=== PATIENT | male | born 1930 | race Caucasian/White ===

== ENCOUNTER 2018-08-24 08:19 | Inpatient (IN) | payer MEDICARE, BC ==
[2018-08-24] VITALS (21 sets, daily range): BP systolic 88–152; BP diastolic 46–100
[~2018-08-24] VITALS: Ht 167.6 cm; Wt 86.2 kg
[~2018-08-24 08:19] MED LIST: ASPI81TA52 PO; CARV-50 PO; CHOL100046 PO; DOCUMENT DATE & TIME OF BETA-BLOCKER PO ONE; DOXA4TAB3 PO; FINA5TAB11 PO; FURO20TA4 PO; LOSA50TA21 PO; LOVA20TA2 PO; MAGN400C PO; MULT1TAB74 PO; POTA10CA44 PO; RIVA20TA PO; VANCOMYCIN INJ 1000 MG in NORMAL SALINE 250ml IV.SOLN IV ONE; famotidine 20mg tablet PO ONE; ringers solution, lacted 1,000 ML IV SCH
[2018-08-24] MEDS ORDERED: DIFL5DRO LEFTEYE (09:42)
[2018-08-24] MEDS ORDERED: bacitracin inj 150,000 UNIT in sodium chloride irrig. sol 3,000 ML IR ONE ×4 (10:00)
[2018-08-24] MEDS ORDERED: ringers solution, lacted 1,000 ML IV SCH (10:34)
[2018-08-24] MEDS ORDERED: meperidine/PF 25mg/ml syringe IV PRN ×3 (10:35)
[2018-08-24] MEDS ORDERED: proCHLORperazine 10 MG/2 ml inj IV PRN (10:35)
[2018-08-24] MEDS ORDERED: morphine 4 MG/ML inj SYRINge IV PRN ×2 (10:35)
[2018-08-24] MEDS ORDERED: ondansetron/PF 4mg/2ml inj IV PRN ×2 (10:35→13:20)
[2018-08-24 10:41] LABS: ALANINE AMINOTRANSFERASE 21 U/L (12-78); ALBUMIN 3.1 G/DL (3.4-5.0); ALBUMIN/GLOBULIN RATIO 0.7 (1.1-1.5); ALKALINE PHOSPHATASE 98 IU/L (46-116); ANION GAP 10 (8-16); ASPARTATE AMINO TRANSFERASE 19 U/L (10-37); BILIRUBIN,TOTAL 0.6 MG/DL (0.1-1.0); BLOOD UREA NITROGEN 18 MG/DL (7-18); BUN/CREATININE RATIO 15.4 (5.4-32.0); CALCIUM 8.8 MG/DL (8.5-10.1); CHLORIDE 102 MMOL/L (99-107); CREATININE 1.17 MG/DL (0.60-1.10); GLUCOSE 102 MG/DL (70-104); POTASSIUM 4.1 MMOL/L (3.5-5.1); SODIUM 138 MMOL/L (135-145); TOTAL CARBON DIOXIDE 25.6 MMOL/L (24-32); TOTAL PROTEIN 7.3 G/DL (6.4-8.2); eGFR 59 ML/MIN
[2018-08-24 10:48] LABS: INR 1.1 INR; PARTIAL THROMBOPLASTIN TIME 31 SECONDS (22-32); PROTHROMBIN TIME 11.2 SECONDS (9.0-12.0)
[2018-08-24] MEDS ORDERED: propofol 10mg/ml 20ml vial IV ONE (11:07)
[2018-08-24] MEDS ORDERED: tetracaine 1% (10mg/ml) pres. free inj. ONE (11:12)
[2018-08-24] MEDS ORDERED: fentaNYL/PF 50MCG/1 ML 2ML syringe ONE (11:13)
[2018-08-24] MEDS ORDERED: BUPIVAcaine/dex-water/PF 7.5 mg/ml 2ml ampul ONE (11:14)
[2018-08-24] MEDS ORDERED: MIDAZolam 5mg/5ml vial ONE (11:14)
[2018-08-24] MEDS ORDERED: tranexamic acid inj. 1,500 MG in normal saline 100ml IV soln 85 ML IV ONE (11:55)
[2018-08-24] MEDS ORDERED: oxyCODONE/APAP 5-325mg tablet PO PRN ×2 (13:20)
[2018-08-24] MEDS ORDERED: diphenhydrAMINE 25mg capsule PO PRN ×2 (13:20)
[2018-08-24] MEDS ORDERED: bisacodyl 10mg suppository rectal RC PRN (13:20)
[2018-08-24] MEDS ORDERED: HYDROmorphone 1 mg/ml syringe IV PRN (13:20)
[2018-08-24] MEDS: potassium cl 20mEq in 1/2 NS 1,000 ML IV SCH ×2 (13:20→20:13)
[2018-08-24] MEDS ORDERED: magnesium hydroxide 30ml (MOM) UD suspension PO PRN (13:20)
[2018-08-24] MEDS: acetaminophen 325mg tablet PO PRN (17:37)
[2018-08-24] MEDS ORDERED: vancomycin/NS 1 GM ADD-VANTAGE 250 ML IV SCH (20:00)
[2018-08-24] MEDS: LOVASTATIN 20 MG PO SCH (20:18)
[2018-08-24] MEDS: losartan 50mg tablet PO SCH (20:18)
[2018-08-24] MEDS: carVEDilol 12.5mg tablet PO SCH (20:18)
[2018-08-24] MEDS: ascorbic acid 500mg tablet PO SCH (20:18)
[2018-08-24] MEDS: sennosides 8.6mg tablet PO SCH (20:19)
[2018-08-24] MEDS: gabapentin 300mg capsule PO SCH (20:19)
[2018-08-24] MEDS: finasteride 5mg tablet PO SCH (21:00)
[2018-08-25 02:00] VITALS: BP 111/64
[2018-08-25] MEDS: acetaminophen 325mg tablet PO PRN ×3 (02:09→21:28)
[2018-08-25 05:00] VITALS: BP_SYST 107; BP_SYST 98; BP_DIAS 62; BP_DIAS 65
[2018-08-25] MEDS: potassium cl 20mEq in 1/2 NS 1,000 ML IV SCH ×3 (05:55→21:20)
[2018-08-25 06:01] LABS: BASOPHILS % (AUTO) 0.4 % (0-1); EOSINOPHILS # (AUTO) 0.1 X10'3 (0-0.9); HEMATOCRIT 29.7 % (42.0-52.0); HEMOGLOBIN 10.1 g/dl (14.0-17.9); LYMPHOCYTES % (AUTO) 14.2 % (21-51); MEAN CORPUSCULAR HEMOGLOBIN 32.9 PG (27.0-31.0); MEAN CORPUSCULAR HGB CONC 34.1 % (33.0-36.5); MEAN CORPUSCULAR VOLUME 96.4 FL (78-98); MEAN PLATELET VOLUME 8.4 FL (7.4-10.4); MONOCYTES # (AUTO) 0.8 X10'3 (0-0.9); MONOCYTES % (AUTO) 10.8 % (2-12); NEUTROPHILS # (AUTO) 5.1 X10'3 (1.8-7.7); NEUTROPHILS % (AUTO) 73.6 % (42-75); PLATELET COUNT 262 X10'3 (140-440); RED BLOOD COUNT 3.08 X10'6 (4.70-6.10); RED CELL DISTRIBUTION WIDTH 12.5 % (11.5-14.5)
[2018-08-25 06:16] LABS: INR 1.4 INR; PROTHROMBIN TIME 14.1 SECONDS (9.0-12.0)
[2018-08-25 06:23] LABS: ALANINE AMINOTRANSFERASE 15 U/L (12-78); ALBUMIN 2.4 G/DL (3.4-5.0); ALBUMIN/GLOBULIN RATIO 0.7 (1.1-1.5); ALKALINE PHOSPHATASE 81 IU/L (46-116); ANION GAP 8 (8-16); ASPARTATE AMINO TRANSFERASE 15 U/L (10-37); BILIRUBIN,TOTAL 0.5 MG/DL (0.1-1.0); BLOOD UREA NITROGEN 16 MG/DL (7-18); BUN/CREATININE RATIO 14.7 (5.4-32.0); CALCIUM 8.1 MG/DL (8.5-10.1); CHLORIDE 103 MMOL/L (99-107); CREATININE 1.09 MG/DL (0.60-1.10); GLUCOSE 103 MG/DL (70-104); POTASSIUM 4.6 MMOL/L (3.5-5.1); SODIUM 134 MMOL/L (135-145); TOTAL CARBON DIOXIDE 23.5 MMOL/L (24-32); eGFR 64 ML/MIN
[2018-08-25] MEDS: OPTH LEFTEYE SCH (08:00)
[2018-08-25] MEDS: doxazosin mesylate 2mg tablet PO SCH (08:00)
[2018-08-25] MEDS: EYE LEFTEYE SCH (08:00)
[2018-08-25] MEDS: DIFLUPREDNATE 0.05% LEFTEYE SCH (08:00)
[2018-08-25] MEDS: ascorbic acid 500mg tablet PO SCH ×2 (09:16→21:19)
[2018-08-25] MEDS: losartan 50mg tablet PO SCH ×2 (09:16→21:19)
[2018-08-25] MEDS: carVEDilol 12.5mg tablet PO SCH ×2 (09:16→21:19)
[2018-08-25] MEDS: furosemide 20MG tablet PO SCH (09:16)
[2018-08-25] MEDS: potassium chloride 10mEq ER tablet PO SCH (09:16)
[2018-08-25] MEDS: multivitamins, therapeutics tablet PO SCH (09:17)
[2018-08-25] MEDS: gabapentin 300mg capsule PO SCH ×3 (09:17→21:20)
[2018-08-25 09:23] VITALS: BP 114/60
[2018-08-25 10:00] VITALS: BP 107/65
[2018-08-25] MEDS ORDERED: vancomycin inj 1,250 MG in normal saline 250ml IV soln 250 ML IV SCH (10:00)
[2018-08-25] MEDS ORDERED: lactose-reduced food (Ensure High Protein) 237ml bottle PO SCH (13:00)
[2018-08-25 18:00] VITALS: BP 113/60
[2018-08-25] MEDS ORDERED: warfarin 3mg tablet PO ONE (21:00)
[2018-08-25] MEDS: lactobacillus rhamnosus 10,000 MMU CELLS/CAPSULE PO SCH (21:19)
[2018-08-25] MEDS: sennosides 8.6mg tablet PO SCH (21:20)
[2018-08-25] MEDS: LOVASTATIN 20 MG PO SCH (21:20)
[2018-08-25 22:00] VITALS: BP 106/58
[2018-08-25] MEDS: finasteride 5mg tablet PO SCH (22:49)
[2018-08-26] MEDS: potassium cl 20mEq in 1/2 NS 1,000 ML IV SCH (05:20)
[2018-08-26] MEDS: acetaminophen 325mg tablet PO PRN (05:33)
[2018-08-26 06:00] VITALS: BP 124/74
[2018-08-26 06:23] LABS: BASOPHILS % (AUTO) 0.4 % (0-1); EOSINOPHILS # (AUTO) 0.2 X10'3 (0-0.9); EOSINOPHILS % (AUTO) 2.4 % (0-6); HEMATOCRIT 30.1 % (42.0-52.0); HEMOGLOBIN 10.5 g/dl (14.0-17.9); LYMPHOCYTES # (AUTO) 1.4 X10'3 (1.1-4.8); LYMPHOCYTES % (AUTO) 21.9 % (21-51); MEAN CORPUSCULAR HEMOGLOBIN 33.5 PG (27.0-31.0); MEAN CORPUSCULAR HGB CONC 34.9 % (33.0-36.5); MEAN PLATELET VOLUME 8.4 FL (7.4-10.4); MONOCYTES # (AUTO) 0.8 X10'3 (0-0.9); MONOCYTES % (AUTO) 12.4 % (2-12); NEUTROPHILS # (AUTO) 4.2 X10'3 (1.8-7.7); NEUTROPHILS % (AUTO) 62.9 % (42-75); PLATELET COUNT 263 X10'3 (140-440); RED BLOOD COUNT 3.14 X10'6 (4.70-6.10); RED CELL DISTRIBUTION WIDTH 12.3 % (11.5-14.5); WHITE BLOOD COUNT 6.6 X10'3 (4.5-11.0)
[2018-08-26 06:27] LABS: INR 1.4 INR; PROTHROMBIN TIME 13.9 SECONDS (9.0-12.0)
[2018-08-26 06:34] LABS: ALANINE AMINOTRANSFERASE 17 U/L (12-78); ALBUMIN 2.3 G/DL (3.4-5.0); ALBUMIN/GLOBULIN RATIO 0.6 (1.1-1.5); ALKALINE PHOSPHATASE 89 IU/L (46-116); ANION GAP 6 (8-16); ASPARTATE AMINO TRANSFERASE 21 U/L (10-37); BILIRUBIN,TOTAL 0.3 MG/DL (0.1-1.0); BLOOD UREA NITROGEN 18 MG/DL (7-18); BUN/CREATININE RATIO 16.8 (5.4-32.0); CALCIUM 8.5 MG/DL (8.5-10.1); CHLORIDE 107 MMOL/L (99-107); CREATININE 1.07 MG/DL (0.60-1.10); GLUCOSE 99 MG/DL (70-104); POTASSIUM 4.8 MMOL/L (3.5-5.1); SODIUM 139 MMOL/L (135-145); TOTAL CARBON DIOXIDE 26.2 MMOL/L (24-32); TOTAL PROTEIN 6.1 G/DL (6.4-8.2); eGFR 65 ML/MIN
[2018-08-26] MEDS: DIFLUPREDNATE 0.05% LEFTEYE SCH (08:00)
[2018-08-26] MEDS: EYE LEFTEYE SCH (08:00)
[2018-08-26] MEDS: OPTH LEFTEYE SCH (08:00)
[2018-08-26] MEDS ORDERED: DAPTOmycin inj. 500 MG in normal saline 100ml IV soln 100 ML IV SCH (08:00)
[2018-08-26] MEDS: carVEDilol 12.5mg tablet PO SCH (08:03)
[2018-08-26] MEDS: ascorbic acid 500mg tablet PO SCH (08:03)
[2018-08-26] MEDS: losartan 50mg tablet PO SCH (08:03)
[2018-08-26] MEDS: doxazosin mesylate 2mg tablet PO SCH (08:03)
[2018-08-26] MEDS: lactobacillus rhamnosus 10,000 MMU CELLS/CAPSULE PO SCH (08:03)
[2018-08-26] MEDS: furosemide 20MG tablet PO SCH (08:03)
[2018-08-26] MEDS: potassium chloride 10mEq ER tablet PO SCH (08:03)
[2018-08-26] MEDS: multivitamins, therapeutics tablet PO SCH (08:03)
[2018-08-26] MEDS: gabapentin 300mg capsule PO SCH ×2 (08:03→13:57)
[2018-08-26 10:00] VITALS: BP 112/85
[2018-08-26] MEDS ORDERED: warfarin 3mg tablet PO ONE (10:00)
[2018-08-26] MEDS ORDERED: acetaminophen 325mg tablet PO PRN (13:20)
[2018-08-26] MEDS ORDERED: VANCOMYCIN LEVEL IV ONE (21:30)
[2018-08-27] MEDS ORDERED: VANCOMYCIN LEVEL IV ONE (09:30)
== END 2018-08-26 15:45 | disposition home health service (06) | DRG 486 ==
LOC: PAS IN 08:19 → EDSTATUS 11:15 → ORTHO 4S 15:08
PROVIDERS: ADMIT Specialist; ATTEND Specialist
PROC: 0SPD09Z Removal of Liner from Left Knee Joint, Open Approach (ICD-10-PCS; 2018-08-24)
PROC: 0SUW09Z Supplement Left Knee Joint, Tibial Surface with Liner, Open Approach (ICD-10-PCS; 2018-08-24)
PROC: 0SBD0ZZ Excision of Left Knee Joint, Open Approach (ICD-10-PCS; principal; 2018-08-24 11:07)
PROC: 02HV33Z Insertion of Infusion Device into Superior Vena Cava, Percutaneous Approach (ICD-10-PCS; 2018-08-26)
PROC: B548ZZA Ultrasonography of Superior Vena Cava, Guidance (ICD-10-PCS; 2018-08-26)
DX: T84.54XA Infection and inflammatory reaction due to internal left knee prosthesis, initial encounter (principal); I42.9 Cardiomyopathy, unspecified; D62 Acute posthemorrhagic anemia; B95.7 Other staphylococcus as the cause of diseases classified elsewhere; N40.0 Benign prostatic hyperplasia without lower urinary tract symptoms; G47.30 Sleep apnea, unspecified; E78.5 Hyperlipidemia, unspecified; I10 Essential (primary) hypertension; I25.10 Atherosclerotic heart disease of native coronary artery without angina pectoris; I48.91 Unspecified atrial fibrillation; Y83.1 Surgical operation with implant of artificial internal device as the cause of abnormal reaction of the patient, or of later complication, without mention of misadventure at the time of the procedure; Z79.899 Other long term (current) drug therapy; Z79.01 Long term (current) use of anticoagulants; Y92.89 Other specified places as the place of occurrence of the external cause
CPT/HCPCS: 36415; 36569; 71045; 73560; 76937; 80053; 85025; 85610; 85730; 87070; 87075; 87077; 87102; 87186; 93005; 97110; 97116; 97162; A6257; A6449; A6455; A7000; C1758; C1776; J0878; J2250; J2704; J3010; J3370; J3490; J7030; J7120

== ENCOUNTER 2018-10-26 11:40 | Emergency (ER) | payer MEDICARE, BC ==
[~2018-10-26] VITALS: Ht 165.1 cm; Wt 86.0 kg
[~2018-10-26 11:40] MED LIST changes: +DIFL5DRO LEFTEYE; -DOCUMENT DATE & TIME OF BETA-BLOCKER PO ONE; -VANCOMYCIN INJ 1000 MG in NORMAL SALINE 250ml IV.SOLN IV ONE; -famotidine 20mg tablet PO ONE; -ringers solution, lacted 1,000 ML IV SCH
[2018-10-26 12:09] LABS: BASOPHILS % (AUTO) 0.1 % (0-1); EOSINOPHILS # (AUTO) 0.1 X10'3 (0-0.9); EOSINOPHILS % (AUTO) 2.2 % (0-6); HEMATOCRIT 37.5 % (42.0-52.0); HEMOGLOBIN 12.2 g/dl (14.0-17.9); LYMPHOCYTES # (AUTO) 1.3 X10'3 (1.1-4.8); LYMPHOCYTES % (AUTO) 20.8 % (21-51); MEAN CORPUSCULAR HEMOGLOBIN 31.3 PG (27.0-31.0); MEAN CORPUSCULAR HGB CONC 32.4 % (33.0-36.5); MEAN CORPUSCULAR VOLUME 96.5 FL (78-98); MEAN PLATELET VOLUME 9.1 FL (7.4-10.4); MONOCYTES # (AUTO) 0.5 X10'3 (0-0.9); MONOCYTES % (AUTO) 8.1 % (2-12); NEUTROPHILS # (AUTO) 4.4 X10'3 (1.8-7.7); NEUTROPHILS % (AUTO) 68.8 % (42-75); PLATELET COUNT 239 X10'3 (140-440); RED BLOOD COUNT 3.89 X10'6 (4.70-6.10); RED CELL DISTRIBUTION WIDTH 15.1 % (11.5-14.5); WHITE BLOOD COUNT 6.4 X10'3 (4.5-11.0)
[2018-10-26] MEDS ORDERED: LIDOcaine 1% w/epiNEPHrine 1:200,000 30ml vial IJ ONE (12:20)
[2018-10-26] MEDS ORDERED: bacitracin 15gm ointment TP ONE (12:20)
[2018-10-26 12:22] LABS: INR 1.2 INR; PARTIAL THROMBOPLASTIN TIME 32 SECONDS (22-32); PROTHROMBIN TIME 12.1 SECONDS (9.0-12.0)
[2018-10-26 12:23] LABS: ALANINE AMINOTRANSFERASE 23 U/L (12-78); ALBUMIN 3.6 G/DL (3.4-5.0); ALBUMIN/GLOBULIN RATIO 0.9 (1.1-1.5); ALKALINE PHOSPHATASE 79 IU/L (46-116); ANION GAP 10 (8-16); ASPARTATE AMINO TRANSFERASE 24 U/L (10-37); BILIRUBIN,TOTAL 0.6 MG/DL (0.1-1.0); BLOOD UREA NITROGEN 18 MG/DL (7-18); BUN/CREATININE RATIO 14.8 (5.4-32.0); CHLORIDE 102 MMOL/L (99-107); CREATININE 1.22 MG/DL (0.60-1.10); GLUCOSE 125 MG/DL (70-104); POTASSIUM 4.4 MMOL/L (3.5-5.1); SODIUM 137 MMOL/L (135-145); TOTAL CARBON DIOXIDE 25.1 MMOL/L (24-32); TOTAL PROTEIN 7.5 G/DL (6.4-8.2); eGFR 56 ML/MIN
[2018-10-26 12:27] LABS: TROPONIN I < 0.04 NG/ML (0.0-0.05)
[2018-10-26 13:15] LABS: CLARITY,URINE SLIGHTLY CLOUDY (Clear); COLOR,URINE YELLOW (Yellow); GLUCOSE, URINE NEGATIVE (Neg); KETONES,URINE NEGATIVE (Neg); LEUKOCYTE ESTERASE ,URINE SMALL (Neg); NITRITES, URINE NEGATIVE (Neg); OCCULT BLOOD,URINE NEGATIVE (Neg); PH,URINE 5.5 (4.8-8.0); PROTEIN,URINE NEGATIVE (Neg); UROBILINOGEN,URINE 0.2 E.U/dL (0.2-1.0)
[2018-10-26 13:54] VITALS: BP 111/86
[2018-10-26 14:12] LABS: UA COLLECTION TYPE CLN CATCH MIDSTREAM
[2018-10-26 14:29] LABS: BACTERIA,URINE 4+ /HPF (Neg); RBC,URINE 0-2 /HPF (0-2); SQUAMOUS EPITHELIAL CELL,UR FEW /LPF (FEW); WBC,URINE 0-4 /HPF (0-4)
== END 2018-10-26 13:56 | disposition home or self-care (01) ==
LOC: ER 11:41
DX: S81.012A Laceration without foreign body, left knee, initial encounter (principal); S00.83XA Contusion of other part of head, initial encounter; S09.90XA Unspecified injury of head, initial encounter; M25.522 Pain in left elbow; I48.91 Unspecified atrial fibrillation; I25.10 Atherosclerotic heart disease of native coronary artery without angina pectoris; E78.00 Pure hypercholesterolemia, unspecified; I10 Essential (primary) hypertension; Z95.5 Presence of coronary angioplasty implant and graft; Z98.890 Other specified postprocedural states; Z79.82 Long term (current) use of aspirin; Z79.899 Other long term (current) drug therapy; Z96.652 Presence of left artificial knee joint; Z79.01 Long term (current) use of anticoagulants; W18.49XA Other slipping, tripping and stumbling without falling, initial encounter; Y93.89 Activity, other specified; Y92.89 Other specified places as the place of occurrence of the external cause; Y99.9 Unspecified external cause status
CPT/HCPCS: 12004; 36415; 70450; 71045; 73080; 73564; 80053; 81001; 83605; 84484; 85025; 85610; 85730; 87040; 87077; 87088; 87186; 93005; 99284; J3490

== ENCOUNTER 2018-12-22 16:30 | Inpatient (IN) | payer MEDICARE, BC | END 2018-12-26 15:35 | disposition home health service (06) | LOC: ER 16:30 → ED HOLD 12-23 02:44 → MED 3N 12-23 11:10 | DX: I63.81 Other cerebral infarction due to occlusion or stenosis of small artery (principal); G93.49 Other encephalopathy; I50.22 Chronic systolic (congestive) heart failure; N39.0 Urinary tract infection, site not specified; I48.2 Chronic atrial fibrillation; I25.10 Atherosclerotic heart disease of native coronary artery without angina pectoris; N40.0 Benign prostatic hyperplasia without lower urinary tract symptoms; I65.23 Occlusion and stenosis of bilateral carotid arteries ==

== ENCOUNTER 2019-03-22 06:44 | Inpatient (IN) | payer MEDICARE, BC | END 2019-03-24 11:15 | disposition home or self-care (01) | LOC: PAS IN 06:44 → CICU 2S 13:44 | PROC: 03CL0ZZ Extirpation of Matter from Left Internal Carotid Artery, Open Approach (ICD-10-PCS; principal; 2019-03-22 09:00) | PROC: 4A10X4Z Monitoring of Central Nervous Electrical Activity, External Approach (ICD-10-PCS; 2019-03-22 09:00) | DX: I65.22 Occlusion and stenosis of left carotid artery (principal) ==

== ENCOUNTER 2020-02-25 15:19 | Inpatient (IN) | payer MEDICARE, BC ==
[~2020-02-25] VITALS: Ht 167.6 cm; Wt 86.4 kg
[~2020-02-25 15:19] MED LIST changes: +APIX5TAB3 PO; +ATOR20TA PO; +CARV-49 PO; -CARV-50 PO; -DIFL5DRO LEFTEYE; +DOXY100C2 PO; -LOSA50TA21 PO; -LOVA20TA2 PO; -MAGN400C PO; -RIVA20TA PO
[2020-02-25 15:43] LABS: BASOPHILS # (AUTO) 0.1 X10'3 (0-0.2); BASOPHILS % (AUTO) 0.7 % (0-1); EOSINOPHILS % (AUTO) 0.3 % (0-6); HEMATOCRIT 38.6 % (42.0-52.0); HEMOGLOBIN 12.4 g/dl (14.0-17.9); LYMPHOCYTES % (AUTO) 13.7 % (21-51); MEAN CORPUSCULAR HEMOGLOBIN 31.2 PG (27.0-31.0); MEAN CORPUSCULAR HGB CONC 32.2 g/dL (33.0-36.5); MEAN CORPUSCULAR VOLUME 96.6 FL (78-98); MEAN PLATELET VOLUME 9.2 FL (7.4-10.4); MONOCYTES # (AUTO) 0.5 X10'3 (0-0.9); MONOCYTES % (AUTO) 7.3 % (2-12); NEUTROPHILS # (AUTO) 5.6 X10'3 (1.8-7.7); PLATELET COUNT 137 X10'3 (140-440); RED BLOOD COUNT 3.99 X10'6 (4.70-6.10); RED CELL DISTRIBUTION WIDTH 18.2 % (11.5-14.5); WHITE BLOOD COUNT 7.2 X10'3 (4.5-11.0)
--- NOTE | 2020-02-25 15:48 | NUR ---
Aracely guerrero in [facility] - 02/25/20 at 1612 by RIGOBERTO GONE TO CT
--- NOTE | 2020-02-25 16:11 | NUR ---
[address]
[2020-02-25 16:17] LABS: ALANINE AMINOTRANSFERASE 16 U/L (12-78); ALBUMIN 3.2 G/DL (3.4-5.0); ALBUMIN/GLOBULIN RATIO 0.8 (1.1-1.5); ALKALINE PHOSPHATASE 129 IU/L (46-116); ANION GAP 8 (8-16); ASPARTATE AMINO TRANSFERASE 32 U/L (10-37); BILIRUBIN,TOTAL 1.3 MG/DL (0.1-1.0); BLOOD UREA NITROGEN 42 MG/DL (7-18); BUN/CREATININE RATIO 20.4 (5.4-32.0); CALCIUM 9.1 MG/DL (8.5-10.1); CHLORIDE 100 MMOL/L (99-107); CREATININE 2.06 MG/DL (0.60-1.10); ETHANOL < 0.010 GM/DL (0.0-0.010); GLUCOSE 98 MG/DL (70-104); MAGNESIUM 2.2 MG/DL (1.5-2.4); POTASSIUM 3.5 MMOL/L (3.5-5.1); SODIUM 137 MMOL/L (135-145); TOTAL CARBON DIOXIDE 29.5 MMOL/L (24-32); TOTAL PROTEIN 7.1 G/DL (6.4-8.2); eGFR 31 ML/MIN
[2020-02-25] MEDS ORDERED: furosemide 10 MG/1 ML 10ml inj IV ONE (16:25)
[2020-02-25] MEDS ORDERED: furosemide 40mg/4ml inj IV ONE (16:25)
[2020-02-25] MEDS ORDERED: metoprolol tartrate 1mg/ml inj IV ONE (16:25)
[2020-02-25] MEDS ORDERED: ondansetron/PF 4mg/2ml inj IV PRN (16:55)
[2020-02-25] MEDS ORDERED: acetaminophen 325mg tablet PO PRN (16:55)
[2020-02-25] MEDS ORDERED: HYDROcodone/acetaminophen 5mg/325mg tablet PO PRN (16:55)
[2020-02-25] MEDS ORDERED: HYDROcodone/acetaminophen 10/325mg tab PO PRN (16:55)
[2020-02-25] MEDS ORDERED: mag hydrox/Alum hydrox/simeth 30ml oral suspension PO PRN (16:55)
[2020-02-25] MEDS ORDERED: HYDROmorphone inj. 0.5 MG/0.5 ML DISP.SYRIN IV PRN (16:55)
[2020-02-25 16:58] LABS: CLARITY,URINE CLOUDY (Clear); COLOR,URINE YELLOW (Yellow); GLUCOSE, URINE NEGATIVE (Neg); KETONES,URINE NEGATIVE (Neg); LEUKOCYTE ESTERASE ,URINE LARGE (Neg); NITRITES, URINE NEGATIVE (Neg); OCCULT BLOOD,URINE TRACE-INTACT (Neg); PROTEIN,URINE NEGATIVE (Neg); UROBILINOGEN,URINE 0.2 E.U/dL (0.2-1.0)
[2020-02-25] MEDS: furosemide 20 MG/2 ML vial IV SCH ×2 (17:00→20:04)
[2020-02-25] MEDS ORDERED: ZAR2.5T CORPAK (17:05)
[2020-02-25] MEDS ORDERED: VALS40TA2 PO (17:05)
[2020-02-25 17:08] LABS: UA COLLECTION TYPE CLN CATCH MIDSTREAM
[2020-02-25 17:09] LABS: BACTERIA,URINE 2+ /HPF (Neg); RBC,URINE 0-2 /HPF (0-2); SQUAMOUS EPITHELIAL CELL,UR FEW /LPF (FEW)
[2020-02-25 17:10] LABS: MUCUS STRANDS NONE SEEN /LPF (Neg)
--- NOTE | 2020-02-25 17:30 | NUR ---
Received pt from SHALINI Clement in ER. Pt was sent up in stable condition. Oriented pt to room and call light. Placed tele monitor on. Completed a two RN skin check. VS: 122/[id number]%-20
[2020-02-25 18:00] VITALS: BP 107/60
--- NOTE | 2020-02-25 18:39 | NUR ---
Patient in room PCU 3011. I have received report from SHALINI Hennessy and had the opportunity to ask questions and assume patient care.
--- NOTE | 2020-02-25 18:41 | NUR ---
Problems reprioritized. Patient report given, questions answered & plan of care reviewed with SHALINI France.
[2020-02-25] MEDS: acetaminophen 325mg tablet PO PRN (20:03)
[2020-02-25 22:00] VITALS: BP 145/80
[2020-02-26 02:00] VITALS: BP 113/59
[2020-02-26 04:13] LABS: BASOPHILS % (AUTO) 0.6 % (0-1); EOSINOPHILS % (AUTO) 0.2 % (0-6); HEMATOCRIT 37.6 % (42.0-52.0); HEMOGLOBIN 12.1 g/dl (14.0-17.9); LYMPHOCYTES # (AUTO) 0.9 X10'3 (1.1-4.8); LYMPHOCYTES % (AUTO) 17.9 % (21-51); MEAN CORPUSCULAR HEMOGLOBIN 31.1 PG (27.0-31.0); MEAN CORPUSCULAR HGB CONC 32.2 g/dL (33.0-36.5); MEAN CORPUSCULAR VOLUME 96.5 FL (78-98); MEAN PLATELET VOLUME 9.4 FL (7.4-10.4); MONOCYTES # (AUTO) 0.5 X10'3 (0-0.9); MONOCYTES % (AUTO) 9.7 % (2-12); NEUTROPHILS # (AUTO) 3.6 X10'3 (1.8-7.7); NEUTROPHILS % (AUTO) 71.6 % (42-75); PLATELET COUNT 134 X10'3 (140-440); RED CELL DISTRIBUTION WIDTH 18.6 % (11.5-14.5); WHITE BLOOD COUNT 5.1 X10'3 (4.5-11.0)
[2020-02-26 04:29] LABS: ALBUMIN 2.9 G/DL (3.4-5.0); ANION GAP 9 (8-16); BLOOD UREA NITROGEN 42 MG/DL (7-18); BUN/CREATININE RATIO 22.2 (5.4-32.0); CALCIUM 9.1 MG/DL (8.5-10.1); CHLORIDE 100 MMOL/L (99-107); CREATININE 1.89 MG/DL (0.60-1.10); GLUCOSE 96 MG/DL (70-104); POTASSIUM 3.1 MMOL/L (3.5-5.1); SODIUM 140 MMOL/L (135-145); TOTAL CARBON DIOXIDE 30.7 MMOL/L (24-32); eGFR 34 ML/MIN
[2020-02-26 04:45] LABS: PLATELET ESTIMATE DECREASED
[2020-02-26 04:46] LABS: ANISOCYTOSIS 2+; POLYCHROMASIA FEW
--- NOTE | 2020-02-26 06:27 | NUR ---
Problems reprioritized. Patient report given, questions answered & plan of care reviewed with SHALINI Jo.
[2020-02-26 07:00] VITALS: BP 102/61
--- NOTE | 2020-02-26 07:03 | NUR ---
Patient in room PCU 3011. I have received report from Edilma LOYA and had the opportunity to ask questions and assume patient care.
--- NOTE | 2020-02-26 07:53 | NUR ---
PAGER ID: [phone] MESSAGE: [phone] Alfredo Avila+ 3.1, can we have replacement protocol orders? Also, [facility] rec needs addressed. Deysi Goldberg ext [phone]
[2020-02-26] MEDS: furosemide 20 MG/2 ML vial IV SCH ×2 (07:58→20:54)
[2020-02-26] MEDS: magnesium hydroxide 30ml (MOM) UD suspension PO PRN (09:12)
[2020-02-26] MEDS ORDERED: potassium CL 10mEq/100ml bag 100 ML IV PRN (10:20)
[2020-02-26] MEDS ORDERED: potassium Cl 20 mEq SR tablet PO PRN (10:20)
[2020-02-26] MEDS: potassium Cl 20 mEq SR tablet PO PRN ×3 (10:55→21:03)
[2020-02-26 11:00] VITALS: BP 102/60
[2020-02-26] MEDS: losartan 25mg tablet PO SCH (11:30)
[2020-02-26] MEDS: metolazone 2.5mg tablet CORPAK SCH (11:30)
[2020-02-26] MEDS ORDERED: apixaban 5mg tablet PO SCH (11:30)
[2020-02-26] MEDS: carvedilol 6.25mg tablet PO SCH ×2 (11:30→20:54)
--- NOTE | 2020-02-26 11:51 | NUR ---
PAGER ID: [phone] MESSAGE: [phone] Felix Driscoll, BP 84/53, manual BP 90/60. BP meds held. Lasix given this AM. Deysi LOYA ext [phone]
--- NOTE | 2020-02-26 14:47 | NUR ---
PAGER ID: [phone] MESSAGE: [phone] Felix Driscoll, results of CT are up. Deysi LOYA ext [phone]
[2020-02-26 15:00] VITALS: BP 98/58
[2020-02-26 18:00] VITALS: BP 107/78
--- NOTE | 2020-02-26 18:29 | NUR ---
Problems reprioritized. Patient report given, questions answered & plan of care reviewed with Enid LOYA.
--- NOTE | 2020-02-26 18:41 | NUR ---
Patient in room U 3011. I have received report from SHALINI Jo and had the opportunity to ask questions and assume patient care. Addendum: 02/26/20 at 1841 by Enid Valentine RN Amended: Links added.
[2020-02-26] MEDS: K and/or MAG REPLACEMENT MC SCH (20:00)
[2020-02-26] MEDS: finasteride 5mg tablet PO SCH (20:54)
[2020-02-26] MEDS: potassium chloride 10mEq ER tablet PO SCH (20:54)
[2020-02-26] MEDS: atorvastatin 20mg tablet PO SCH (20:54)
[2020-02-26] MEDS: acetaminophen 325mg tablet PO PRN (21:03)
[2020-02-26 22:00] VITALS: BP_SYST 107; BP_SYST 99; BP_DIAS 78
[2020-02-27] VITALS (12 sets, daily range): BP systolic 81–122; BP diastolic 45–92
[2020-02-27 05:24] LABS: ALBUMIN 2.8 G/DL (3.4-5.0); ANION GAP 4 (8-16); BLOOD UREA NITROGEN 44 MG/DL (7-18); BUN/CREATININE RATIO 24.6 (5.4-32.0); CHLORIDE 101 MMOL/L (99-107); CREATININE 1.79 MG/DL (0.60-1.10); GLUCOSE 104 MG/DL (70-104); POTASSIUM 3.9 MMOL/L (3.5-5.1); SODIUM 140 MMOL/L (135-145); TOTAL CARBON DIOXIDE 35.1 MMOL/L (24-32); eGFR 36 ML/MIN
[2020-02-27 05:33] LABS: BASOPHILS % (AUTO) 0.4 % (0-1); EOSINOPHILS # (AUTO) 0.1 X10'3 (0-0.9); HEMATOCRIT 37.6 % (42.0-52.0); HEMOGLOBIN 12.2 g/dl (14.0-17.9); LYMPHOCYTES # (AUTO) 1.1 X10'3 (1.1-4.8); MEAN CORPUSCULAR HEMOGLOBIN 31.4 PG (27.0-31.0); MEAN CORPUSCULAR HGB CONC 32.4 g/dL (33.0-36.5); MEAN CORPUSCULAR VOLUME 96.9 FL (78-98); MEAN PLATELET VOLUME 9.6 FL (7.4-10.4); MONOCYTES # (AUTO) 0.5 X10'3 (0-0.9); NEUTROPHILS # (AUTO) 3.7 X10'3 (1.8-7.7); NEUTROPHILS % (AUTO) 68.6 % (42-75); PLATELET COUNT 127 X10'3 (140-440); RED BLOOD COUNT 3.88 X10'6 (4.70-6.10); RED CELL DISTRIBUTION WIDTH 18.1 % (11.5-14.5); WHITE BLOOD COUNT 5.4 X10'3 (4.5-11.0)
--- NOTE | 2020-02-27 06:12 | NUR ---
Problems reprioritized. Patient report given, questions answered & plan of care reviewed with SHALINI Jo.
--- NOTE | 2020-02-27 06:16 | NUR ---
Patient in room PCU 3011. I have received report from Enid LOYA and had the opportunity to ask questions and assume patient care.
[2020-02-27] MEDS: multivitamins, therapeutics tablet PO SCH (07:25)
[2020-02-27] MEDS: metolazone 2.5mg tablet CORPAK SCH (07:25)
[2020-02-27] MEDS: losartan 25mg tablet PO SCH (07:26)
[2020-02-27] MEDS: potassium chloride 10mEq ER tablet PO SCH ×2 (07:26→21:02)
[2020-02-27] MEDS: vitamin D (cholecalciferol) 1,000 unit tablet PO SCH (07:26)
[2020-02-27] MEDS: carvedilol 6.25mg tablet PO SCH ×2 (07:26→21:03)
[2020-02-27] MEDS: furosemide 20 MG/2 ML vial IV SCH (07:27)
[2020-02-27] MEDS: K and/or MAG REPLACEMENT MC SCH ×2 (08:00→20:00)
[2020-02-27] MEDS: levoFLOXACIN 250mg tablet PO SCH (10:17)
[2020-02-27] MEDS: DOBUTamine-DoBUTrex 500mg/D5W 250 ML IV SCH (10:17)
--- NOTE | 2020-02-27 10:27 | NUR ---
notified regarding MAP 57 (82/45) and positive UA with no current tx. New orders to start Levaquin and start Dobutamin at 5 mcg/kg/min. Patient placed on mobile 62. Dobutamine initiated immediately. Will continue to monitor closely.
[2020-02-27] MEDS: aspirin 81mg tablet.DR PO SCH (10:46)
--- NOTE | 2020-02-27 10:56 | NUR ---
3016 WILMER PERRY - Pt. was supposed to have appt with Zach, was concerned. Zach consulted patient at bedside. Deysi LOYA ext [phone]
--- NOTE | 2020-02-27 11:01 | NUR ---
Pt's family was notified regarding changes and is in agreement in POC. Will continue to monitor patient closely.
--- NOTE | 2020-02-27 11:57 | NUR ---
Recheck of blood pressure: 105/71, WOB has decreased some. Nursing educated on DB&C and use of incentive spirometer. Will continue to monitor closely.
--- NOTE | 2020-02-27 17:30 | NUR ---
Patients cardiac output has improved with use of Dobutamine. Blood pressure is 129/70 and his WOB has decreased. Pt. is currently on 2/L via NC and eating dinner. Pt. offers no complaints at this time.
--- NOTE | 2020-02-27 18:00 | NUR ---
Patient in room PCU 3011. I have received report from SHALINI Jo and had the opportunity to ask questions and assume patient care.
--- NOTE | 2020-02-27 18:29 | NUR ---
Problems reprioritized. Patient report given, questions answered & plan of care reviewed with Sravanthi LOYA.
[2020-02-27] MEDS: apixaban 5mg tablet PO SCH (21:02)
[2020-02-27] MEDS: atorvastatin 20mg tablet PO SCH (21:03)
[2020-02-27] MEDS: furosemide 40mg/4ml inj IV SCH (21:10)
[2020-02-27] MEDS: finasteride 5mg tablet PO SCH (21:24)
[2020-02-28] VITALS (10 sets, daily range): BP systolic 89–123; BP diastolic 52–89
[2020-02-28 05:08] LABS: BASOPHILS % (AUTO) 0.3 % (0-1); EOSINOPHILS # (AUTO) 0.1 X10'3 (0-0.9); EOSINOPHILS % (AUTO) 1.2 % (0-6); HEMATOCRIT 37.2 % (42.0-52.0); HEMOGLOBIN 12.1 g/dl (14.0-17.9); LYMPHOCYTES % (AUTO) 16.4 % (21-51); MEAN CORPUSCULAR HEMOGLOBIN 31.2 PG (27.0-31.0); MEAN CORPUSCULAR HGB CONC 32.6 g/dL (33.0-36.5); MEAN CORPUSCULAR VOLUME 95.6 FL (78-98); MEAN PLATELET VOLUME 9.2 FL (7.4-10.4); MONOCYTES # (AUTO) 0.6 X10'3 (0-0.9); MONOCYTES % (AUTO) 9.6 % (2-12); NEUTROPHILS # (AUTO) 4.2 X10'3 (1.8-7.7); NEUTROPHILS % (AUTO) 72.5 % (42-75); PLATELET COUNT 143 X10'3 (140-440); WHITE BLOOD COUNT 5.8 X10'3 (4.5-11.0)
[2020-02-28 05:11] LABS: ALBUMIN 2.8 G/DL (3.4-5.0); ANION GAP 4 (8-16); BLOOD UREA NITROGEN 41 MG/DL (7-18); BUN/CREATININE RATIO 26.3 (5.4-32.0); CALCIUM 9.2 MG/DL (8.5-10.1); CHLORIDE 99 MMOL/L (99-107); CREATININE 1.56 MG/DL (0.60-1.10); GLUCOSE 99 MG/DL (70-104); SODIUM 139 MMOL/L (135-145); eGFR 42 ML/MIN
[2020-02-28 05:12] LABS: POTASSIUM 2.7 MMOL/L (3.5-5.1)
[2020-02-28] MEDS: DOBUTamine-DoBUTrex 500mg/D5W 250 ML IV SCH (05:15)
[2020-02-28] MEDS: potassium CL 10mEq/100ml bag 100 ML IV PRN ×6 (05:27→12:27)
--- NOTE | 2020-02-28 06:10 | NUR ---
Patient in room PCU 3011. I have received report from Sravanthi LOYA and had the opportunity to ask questions and assume patient care.
--- NOTE | 2020-02-28 06:13 | NUR ---
Problems reprioritized. Patient report given, questions answered & plan of care reviewed with SHALINI Castillo.
[2020-02-28] MEDS: acetaminophen 325mg tablet PO PRN (07:14)
[2020-02-28] MEDS: K and/or MAG REPLACEMENT MC SCH (08:00)
[2020-02-28] MEDS ORDERED: losartan 25mg tablet PO SCH (08:00)
[2020-02-28] MEDS: furosemide 40mg/4ml inj IV SCH ×2 (08:00→11:12)
[2020-02-28] MEDS: carvedilol 6.25mg tablet PO SCH (08:00)
[2020-02-28] MEDS: potassium chloride 10mEq ER tablet PO SCH (08:40)
[2020-02-28] MEDS: apixaban 5mg tablet PO SCH (08:42)
[2020-02-28] MEDS: aspirin 81mg tablet.DR PO SCH (08:42)
[2020-02-28] MEDS: metolazone 2.5mg tablet CORPAK SCH (08:42)
[2020-02-28] MEDS: vitamin D (cholecalciferol) 1,000 unit tablet PO SCH (08:42)
[2020-02-28] MEDS: multivitamins, therapeutics tablet PO SCH (09:09)
[2020-02-28] MEDS: levoFLOXACIN 250mg tablet PO SCH (10:11)
--- NOTE | 2020-02-28 10:49 | NUR ---
Spoke to the patients , Marcella, via telephone and updated her on the patients plan of care
--- NOTE | 2020-02-28 10:55 | NUR ---
Paged Dr Hedrick PAGER ID: [phone] MESSAGE: Anna LOYA [phone] [address], I see the transfer to [facility] orders for this patient, pt on dobutamine gtt at 5mcg and soft pressures in the 90s this morning, I held all his BP meds and Lasix. Please advise, thanks! Addendum: 02/28/20 at 1105 by Tamanna Haney RN Spoke with Dr Hedrick, received orders to give AM lasix, patient will be transferred with the dobutamine gtt
[2020-02-28] MEDS: magnesium hydroxide 30ml (MOM) UD suspension PO PRN (13:14)
--- NOTE | 2020-02-28 14:25 | NUR ---
Stable for transfer per MD orders, report called to [facility] and spoke with Marcie, discharge reviewed with patient, Tele monitor discontinued, all belongings collected and sent with patient, patient on dobutamine gtt at 5mcg/kg/min in PIV 22G RUE, Stephy nurse accompanied patient in ambulance, patient left the unit at 1425 with ambulance personnel and STEPHY nurse.
== END 2020-02-28 14:25 | DRG 535 ==
LOC: ER 15:20 → ED HOLD 16:55 → PCU 3S 18:08
PROVIDERS: ADMIT Internal Medicine; ATTEND Internal Medicine
DX: S32.402A Unspecified fracture of left acetabulum, initial encounter for closed fracture (principal); I50.23 Acute on chronic systolic (congestive) heart failure; I13.0 Hypertensive heart and chronic kidney disease with heart failure and stage 1 through stage 4 chronic kidney disease, or unspecified chronic kidney disease; N17.9 Acute kidney failure, unspecified; N39.0 Urinary tract infection, site not specified; I31.3 Pericardial effusion (noninflammatory); I42.9 Cardiomyopathy, unspecified; S70.02XA Contusion of left hip, initial encounter; J61 Pneumoconiosis due to asbestos and other mineral fibers; W01.0XXA Fall on same level from slipping, tripping and stumbling without subsequent striking against object, initial encounter; E78.00 Pure hypercholesterolemia, unspecified; E78.5 Hyperlipidemia, unspecified; B96.1 Klebsiella pneumoniae [K. pneumoniae] as the cause of diseases classified elsewhere; E87.6 Hypokalemia; K57.90 Diverticulosis of intestine, part unspecified, without perforation or abscess without bleeding; G47.30 Sleep apnea, unspecified; I25.10 Atherosclerotic heart disease of native coronary artery without angina pectoris; I35.1 Nonrheumatic aortic (valve) insufficiency; M19.90 Unspecified osteoarthritis, unspecified site; I48.0 Paroxysmal atrial fibrillation; K40.90 Unilateral inguinal hernia, without obstruction or gangrene, not specified as recurrent; N18.9 Chronic kidney disease, unspecified; N40.0 Benign prostatic hyperplasia without lower urinary tract symptoms; B95.2 Enterococcus as the cause of diseases classified elsewhere; Z79.01 Long term (current) use of anticoagulants; Z79.82 Long term (current) use of aspirin; Z79.899 Other long term (current) drug therapy; Z86.73 Personal history of transient ischemic attack (TIA), and cerebral infarction without residual deficits; I95.2 Hypotension due to drugs; T50.1X5A Adverse effect of loop [high-ceiling] diuretics, initial encounter; Y92.238 Other place in hospital as the place of occurrence of the external cause; Y93.89 Activity, other specified; Y92.89 Other specified places as the place of occurrence of the external cause; Y99.8 Other external cause status; Z88.5 Allergy status to narcotic agent; Z95.5 Presence of coronary angioplasty implant and graft
CPT/HCPCS: 36415; 71045; 71250; 73502; 73700; 74176; 80048; 80053; 80320; 81001; 83735; 83880; 84484; 85025; 87077; 87081; 87088; 87186; 93005; 93306; 97162; 97530; 99285; G0378; J1250; J1940; J3480; J3490

== ENCOUNTER 2020-04-13 09:28 | Inpatient (IN) | payer MEDICARE, BC ==
[~2020-04-13] VITALS: Ht 172.7 cm; Wt 99.7 kg
[2020-04-13] VITALS (8 sets, daily range): BP systolic 94–115; BP diastolic 38–68
[~2020-04-13 09:28] MED LIST changes: +MULT-620 PO; -MULT1TAB74 PO; +VALS40TA2 PO; +ZAR2.5T CORPAK
--- NOTE | 2020-04-13 10:00 | NUR ---
EDMD Fabian requesting communication w/ Medical POA to review code status. Marcella contacted by Tip Cutter who reports she is en route to ED. EDMD Fabian updated.
[2020-04-13 10:02] LABS: BASOPHILS % (AUTO) 0.4 % (0-1); EOSINOPHILS % (AUTO) 0.3 % (0-6); HEMATOCRIT 35.9 % (42.0-52.0); HEMOGLOBIN 11.2 g/dl (14.0-17.9); LYMPHOCYTES # (AUTO) 0.5 X10'3 (1.1-4.8); LYMPHOCYTES % (AUTO) 10.7 % (21-51); MEAN CORPUSCULAR HEMOGLOBIN 31.4 PG (27.0-31.0); MEAN CORPUSCULAR HGB CONC 31.3 g/dL (33.0-36.5); MEAN CORPUSCULAR VOLUME 100.5 FL (78-98); MEAN PLATELET VOLUME 9.7 FL (7.4-10.4); MONOCYTES # (AUTO) 0.4 X10'3 (0-0.9); MONOCYTES % (AUTO) 8.7 % (2-12); NEUTROPHILS # (AUTO) 3.7 X10'3 (1.8-7.7); NEUTROPHILS % (AUTO) 79.9 % (42-75); PLATELET COUNT 143 X10'3 (140-440); RED BLOOD COUNT 3.57 X10'6 (4.70-6.10); RED CELL DISTRIBUTION WIDTH 19.6 % (11.5-14.5); WHITE BLOOD COUNT 4.7 X10'3 (4.5-11.0)
[2020-04-13 10:06] LABS: ABG BASE EXCESS -1.3 mmol/L (-2.0-3.0); ABG HCO3 29.4 mmol/L (22.0-26.0); ABG OXYGEN SATURATION 87.2 % (95-98); ABG PCO2 (T) 84.7 mmHg (35.0-45.0); ABG PH (T) 7.158 (7.350-7.450); ABG PO2 (T) 61.1 mmHg (83-108); ALLEN'S TEST POSITIVE; FCOHb 0.8 % (0.5-1.5); FMetHb 0.1 % (0.3-1.12); FO2Hb 86.4 % (94-100); TOTAL HEMOGLOBIN 12.5 G/dl (14.0-17.9)
[2020-04-13 10:09] LABS: PARTIAL THROMBOPLASTIN TIME 47 SECONDS (22-32)
[2020-04-13 10:20] LABS: ALANINE AMINOTRANSFERASE 15 U/L (12-78); ALBUMIN 2.4 G/DL (3.4-5.0); ALBUMIN/GLOBULIN RATIO 0.7 (1.1-1.5); ALKALINE PHOSPHATASE 155 IU/L (46-116); ANION GAP -1 (8-16); ASPARTATE AMINO TRANSFERASE 23 U/L (10-37); BILIRUBIN,TOTAL 0.7 MG/DL (0.1-1.0); BLOOD UREA NITROGEN 93 MG/DL (7-18); CALCIUM 8.7 MG/DL (8.5-10.1); CHLORIDE 100 MMOL/L (99-107); GLUCOSE 100 MG/DL (70-104); POTASSIUM 5.6 MMOL/L (3.5-5.1); SODIUM 134 MMOL/L (135-145); TOTAL CARBON DIOXIDE 35.1 MMOL/L (24-32); TOTAL PROTEIN 5.9 G/DL (6.4-8.2)
--- NOTE | 2020-04-13 10:20 | NUR ---
Per edmd Fabian start norepi now in existing midline PICC per protocol.
[2020-04-13] MEDS: NORepinephrine 8mg/ 250ml NS 250 ML IV SCH ×5 (10:30→23:47)
[2020-04-13 10:31] LABS: BUN/CREATININE RATIO 48.7 (5.4-32.0); CREATININE 1.91 MG/DL (0.60-1.10); eGFR 33 ML/MIN
--- NOTE | 2020-04-13 10:50 | NUR ---
PER LAB, PT CROSS & TYPE REQUIRES nON-SPECIFIC ANTIBODY TESTING, RESULTING IN EXTENDED SCREEN LENGTHENING AVAILABILITY OF BLOOD. EDCA RICHARD NOTIFIED.
[2020-04-13 11:22] LABS: PLATELET ESTIMATE NORMAL; POLYCHROMASIA FEW
[2020-04-13 11:23] LABS: ANISOCYTOSIS 2+; POIKILOCYTOSIS FEW
--- NOTE | 2020-04-13 11:31 | NUR ---
and nephew bedside with pt. edmd stephanie aware & will f/u with them re: code status.
[2020-04-13] MEDS ORDERED: piperacillin/tazo 3.375gm/50ml 50 ML IV STA (11:47)
[2020-04-13] MEDS ORDERED: vancomycin/NS 1 GM ADD-VANTAGE 250 ML IV ONE (11:50)
[2020-04-13] MEDS ORDERED: furosemide 10 MG/1 ML 10ml inj IV ONE (11:55)
--- NOTE | 2020-04-13 13:05 | NUR ---
Per EDMN Fabian, stop Levophed to allow determination of BP.
[2020-04-13] MEDS ORDERED: ZINC57OI3 TOP (13:20)
[2020-04-13] MEDS ORDERED: ASPI162T PO (13:20)
[2020-04-13] MEDS ORDERED: LISI2.5T89 PO (13:24)
[2020-04-13] MEDS ORDERED: DOCU283E2 RC (13:24)
[2020-04-13] MEDS ORDERED: POLY119P2 PO (13:24)
[2020-04-13 13:25] LABS: ABG BASE EXCESS -2.1 mmol/L (-2.0-3.0); ABG HCO3 28.2 mmol/L (22.0-26.0); ABG OXYGEN SATURATION 89.5 % (95-98); ABG PCO2 (T) 77.2 mmHg (35.0-45.0); ABG PO2 (T) 65.4 mmHg (83-108); ALLEN'S TEST POSITIVE; FCOHb 0.9 % (0.5-1.5); FLOW 15 L/min; FMetHb 0.1 % (0.3-1.12); FO2Hb 88.6 % (94-100); TOTAL HEMOGLOBIN 13.4 G/dl (14.0-17.9)
[2020-04-13] MEDS ORDERED: DOXY-8 PO (13:25)
--- NOTE | 2020-04-13 13:25 | NUR ---
Discussed pt's drop in BP w/ edmd stephanie; new order to restart Levophed and titrate to maintain MAP of 65.
[2020-04-13] MEDS ORDERED: DOCU-150 PO (13:29)
[2020-04-13] MEDS ORDERED: ACET-1008 PO (13:29)
[2020-04-13] MEDS ORDERED: ondansetron/PF 4mg/2ml inj IV PRN (13:40)
[2020-04-13] MEDS ORDERED: potassium Cl 20mEq/100mL bag 100 ML IV PRN ×2 (13:40)
[2020-04-13] MEDS ORDERED: potassium Cl 20 mEq SR tablet PO PRN ×2 (13:40)
[2020-04-13] MEDS ORDERED: potassium CL 10mEq/100ml bag 100 ML IV PRN ×2 (13:40)
[2020-04-13] MEDS ORDERED: acetaminophen 325mg tablet PO PRN ×2 (13:40)
[2020-04-13] MEDS ORDERED: LIDOcaine 2% 10ml TOPICAL JELLY (Urojet) TP ONE (13:40)
[2020-04-13] MEDS ORDERED: polyethylene glycol 3350 17gm powd pack PO PRN (13:40)
[2020-04-13] MEDS: normal saline 1000ml 1,000 ML IV SCH (14:35)
--- NOTE | 2020-04-13 16:02 | NUR ---
patient transferred to ICU from ER on .2 with a BP of 97/68, HR is AFIBB at a rate of 82. Patient is on bipap at 100% sats are 92%. Patient is awake and talking upon stimulation but, is very lethargic. Will continue to monitor and assess needs.
[2020-04-13] MEDS: DOBUTamine-DoBUTrex 500mg/D5W 250 ML IV SCH (16:13)
[2020-04-13 17:41] LABS: ABG BASE EXCESS -0.1 mmol/L (-2.0-3.0); ABG HCO3 28.5 mmol/L (22.0-26.0); ABG OXYGEN SATURATION 88.4 % (95-98); ABG PCO2 (T) 64.9 mmHg (35.0-45.0); ABG PO2 (T) 55.8 mmHg (83-108); ALLEN'S TEST POSITIVE; FCOHb 0.7 % (0.5-1.5); FMetHb 0.2 % (0.3-1.12); FO2Hb 87.6 % (94-100); TOTAL HEMOGLOBIN 13.8 G/dl (14.0-17.9)
--- NOTE | 2020-04-13 17:54 | NUR ---
while trying to place a dior per Dr. Mesa, it was noticed by myself and charge nurse that the anatomy on this patient was odd and we could not find a true urethral opening only a wound like opening on the bottom half of the penis head but, it appeared to be closed up when attempting dior placement, smaller sizes were also attempted. I contacted [facility], the facility he came from and the nurses stated that he "was making urine and was incontinent while at their facility" but they seemed unfamiliar with his anatomy. Patient has not made urine since being in this unit and I next called the to get some insight and she said that she was aware that the patient has needed a urologist to place the dior in the past and she wasnt sure why. I then contacted Dr. Mesa who instructed me to get ahold of who is construction worker for urology and Dr. Serrano was contacted, she instructed me to bladder scan the patient which only 150ml was found in the bladder and she said to have the urology cart ready and she would be here srinivas. patient is a poor historian and is unable to give any insight.
--- NOTE | 2020-04-13 18:20 | NUR ---
Patient in room ICU 2044. I have received report from FILIBERTO LOYA and had the opportunity to ask questions and assume patient care.
--- NOTE | 2020-04-13 18:29 | NUR ---
urology at the bedside, report given to zenaida LOYA
[2020-04-13 19:48] LABS: CLARITY,URINE CLOUDY (Clear); COLOR,URINE YELLOW (Yellow); GLUCOSE, URINE NEGATIVE (Neg); KETONES,URINE NEGATIVE (Neg); LEUKOCYTE ESTERASE ,URINE SMALL (Neg); NITRITES, URINE NEGATIVE (Neg); OCCULT BLOOD,URINE LARGE (Neg); PH,URINE 5.5 (4.8-8.0); PROTEIN,URINE 30 mg/dl (Neg); UROBILINOGEN,URINE 0.2 E.U/dL (0.2-1.0)
[2020-04-13 19:53] LABS: UA COLLECTION TYPE FOLEY CATH
[2020-04-13 19:54] LABS: BACTERIA,URINE FEW /HPF (Neg); RBC,URINE TNTC /HPF (0-2); SQUAMOUS EPITHELIAL CELL,UR FEW /LPF (FEW)
[2020-04-13] MEDS: zinc oxide ointment 30gm tube TP SCH (20:00)
[2020-04-13 20:22] LABS: UA EOSINOPHILS NO EOS /HPF
[2020-04-13] MEDS: sennosides/docusate sodium tablet PO SCH (21:00)
[2020-04-13] MEDS: atorvastatin 20mg tablet PO SCH (21:00)
[2020-04-13] MEDS: finasteride 5mg tablet PO SCH (21:00)
[2020-04-13] MEDS: docusate sod 100mg capsule PO SCH (21:16)
[2020-04-13] MEDS: apixaban 5mg tablet PO SCH (21:17)
[2020-04-14] VITALS (24 sets, daily range): BP systolic 80–123; BP diastolic 30–73
[2020-04-14] MEDS: DOBUTamine-DoBUTrex 500mg/D5W 250 ML IV SCH ×2 (04:05→16:29)
[2020-04-14] MEDS: NORepinephrine 8mg/ 250ml NS 250 ML IV SCH ×5 (04:06→20:13)
[2020-04-14] MEDS: normal saline 1000ml 1,000 ML IV SCH ×2 (04:06→16:39)
--- NOTE | 2020-04-14 06:13 | NUR ---
Problems reprioritized. Patient report given, questions answered & plan of care reviewed with YOUNG LOYA.
[2020-04-14 07:10] LABS: BASOPHILS % (AUTO) 0.7 % (0-1); EOSINOPHILS % (AUTO) 0.1 % (0-6); HEMATOCRIT 39.8 % (42.0-52.0); HEMOGLOBIN 12.8 g/dl (14.0-17.9); LYMPHOCYTES # (AUTO) 0.4 X10'3 (1.1-4.8); MEAN CORPUSCULAR HEMOGLOBIN 31.6 PG (27.0-31.0); MEAN CORPUSCULAR VOLUME 98.7 FL (78-98); MEAN PLATELET VOLUME 9.6 FL (7.4-10.4); MONOCYTES # (AUTO) 0.5 X10'3 (0-0.9); MONOCYTES % (AUTO) 8.6 % (2-12); NEUTROPHILS # (AUTO) 4.9 X10'3 (1.8-7.7); NEUTROPHILS % (AUTO) 83.6 % (42-75); PLATELET COUNT 151 X10'3 (140-440); RED BLOOD COUNT 4.04 X10'6 (4.70-6.10); RED CELL DISTRIBUTION WIDTH 19.2 % (11.5-14.5); WHITE BLOOD COUNT 5.8 X10'3 (4.5-11.0)
[2020-04-14 07:30] LABS: ANISOCYTOSIS 2+; LARGE PLATELETS FEW; PLATELET ESTIMATE NORMAL; POLYCHROMASIA FEW
[2020-04-14 07:35] LABS: ALANINE AMINOTRANSFERASE 20 U/L (12-78); ALBUMIN 2.6 G/DL (3.4-5.0); ALBUMIN/GLOBULIN RATIO 0.7 (1.1-1.5); ALKALINE PHOSPHATASE 136 IU/L (46-116); ANION GAP 5 (8-16); ASPARTATE AMINO TRANSFERASE 28 U/L (10-37); BILIRUBIN,TOTAL 1.1 MG/DL (0.1-1.0); BLOOD UREA NITROGEN 97 MG/DL (7-18); BUN/CREATININE RATIO 51.6 (5.4-32.0); CALCIUM 8.5 MG/DL (8.5-10.1); CHLORIDE 100 MMOL/L (99-107); CREATININE 1.88 MG/DL (0.60-1.10); GLUCOSE 102 MG/DL (70-104); MAGNESIUM 2.9 MG/DL (1.5-2.4); PHOSPHORUS 5.1 MG/DL (2.3-4.5); POTASSIUM 5.6 MMOL/L (3.5-5.1); SODIUM 135 MMOL/L (135-145); TOTAL CARBON DIOXIDE 30.2 MMOL/L (24-32); TOTAL PROTEIN 6.1 G/DL (6.4-8.2); eGFR 34 ML/MIN
[2020-04-14] MEDS ORDERED: vitamin D (cholecalciferol) 1,000 unit tablet PO SCH (08:00)
[2020-04-14] MEDS: docusate sod 100mg capsule PO SCH ×2 (08:00→20:00)
[2020-04-14] MEDS ORDERED: multivitamins, therapeutics tablet PO SCH (08:00)
[2020-04-14] MEDS ORDERED: aspirin 81mg tablet.DR PO SCH (08:00)
[2020-04-14] MEDS: zinc oxide ointment 30gm tube TP SCH ×2 (08:00→20:00)
[2020-04-14] MEDS: apixaban 5mg tablet PO SCH ×2 (08:00→21:09)
[2020-04-14 10:26] LABS: ABG BASE EXCESS -2.1 mmol/L (-2.0-3.0); ABG HCO3 24.7 mmol/L (22.0-26.0); ABG OXYGEN SATURATION 98.6 % (95-98); ABG PCO2 (T) 50.3 mmHg (35.0-45.0); ABG PH (T) 7.309 (7.350-7.450); ALLEN'S TEST POSITIVE; FCOHb 0.2 % (0.5-1.5); FLOW 10 L/min; FMetHb 0.2 % (0.3-1.12); FO2Hb 98.2 % (94-100); TOTAL HEMOGLOBIN 13.3 G/dl (14.0-17.9)
--- NOTE | 2020-04-14 11:28 | NUR ---
Pt with low Nikko of 8. Per physical assessment pt with general 3+ edema, BUE/BLE 4+ edema, and a reddened PU to medial sacrum. Wound care has been consulted, pending further skin assessment. Pt currently documented as A/O x 1 and confused. Pt with no dentures per admission assessment and documented to have refused first meal on heart healthy diet. Pt may benefit from BSS with ST to determine need for texture modification. Will continue to follow closely and make recommendations as appropriate. Addendum: 04/14/20 at [address] Amended: Links added.
[2020-04-14] MEDS ORDERED: amiodarone 150mg/dext, iso-os 100 ML IV ONE (14:25)
[2020-04-14] MEDS: amiodarone/D5 360MG/200ML BAG 200 ML IV SCH ×3 (14:40→21:09)
--- NOTE | 2020-04-14 15:36 | NUR ---
TF consult: Pt previously on a heart healthy diet documented to be refusing meals. Pt A/O x 1 and confused, documented to be resistive to care. Corpak already in place with the tip in the gastric outlet area per NADINE BABIN recommendations below. Pt admit with sepsis, metabolic encephalopathy, respiratory acidosis (on BiPAP), and POLI with hx CKD III. Pt with hx CHF, most recent echocardiogram showed an ejection fraction of 40% per MD notes. No BM since admit. Will continue to follow closely. Recommendations: 1) Continuous Vital High Protein with goal rate of 80 mL/hr to provide: 1920 mL total volume/day, 1920 kcal, 168 g protein, and 1605 mL water 2) Additional water flush per MD given hx CHF and CKD III, serum Na on the low end of WNL 2) Prealbumin q Thursday/ 3) Daily weights 4) Monitor electrolytes and adjust EN recs as appropriate 5) Routine bowel care Addendum: 04/14/20 at [address] Amended: Links added.
--- NOTE | 2020-04-14 18:24 | NUR ---
Problems reprioritized. Patient report given, questions answered & plan of care reviewed with SHALINI Beasley.
[2020-04-14] MEDS: finasteride 5mg tablet PO SCH (21:00)
[2020-04-14] MEDS: sennosides/docusate sodium tablet PO SCH (21:09)
[2020-04-14] MEDS: atorvastatin 20mg tablet PO SCH (21:09)
[2020-04-15] VITALS (25 sets, daily range): BP systolic 74–113; BP diastolic 42–72
[2020-04-15] MEDS: NORepinephrine 8mg/ 250ml NS 250 ML IV SCH ×4 (00:23→16:50)
[2020-04-15] MEDS ORDERED: polyethylene glycol 3350 17gm powd pack NG PRN (00:23)
[2020-04-15] MEDS ORDERED: acetaminophen 325mg/10.15ml oral unit dose solution NG PRN (00:24)
[2020-04-15] MEDS ORDERED: potassium Cl 20 mEq SR tablet NG PRN ×2 (00:25)
[2020-04-15] MEDS: acetaminophen 325mg/10.15ml oral unit dose solution NG PRN ×2 (00:26→21:04)
[2020-04-15 03:18] LABS: BASOPHILS % (AUTO) 0.4 % (0-1); EOSINOPHILS % (AUTO) 0.1 % (0-6); HEMATOCRIT 37.4 % (42.0-52.0); HEMOGLOBIN 11.8 g/dl (14.0-17.9); LYMPHOCYTES # (AUTO) 0.7 X10'3 (1.1-4.8); LYMPHOCYTES % (AUTO) 11.9 % (21-51); MEAN CORPUSCULAR HGB CONC 31.7 g/dL (33.0-36.5); MEAN CORPUSCULAR VOLUME 97.8 FL (78-98); MEAN PLATELET VOLUME 9.9 FL (7.4-10.4); MONOCYTES # (AUTO) 0.8 X10'3 (0-0.9); MONOCYTES % (AUTO) 13.6 % (2-12); NEUTROPHILS # (AUTO) 4.3 X10'3 (1.8-7.7); PLATELET COUNT 156 X10'3 (140-440); RED BLOOD COUNT 3.82 X10'6 (4.70-6.10); RED CELL DISTRIBUTION WIDTH 19.4 % (11.5-14.5); WHITE BLOOD COUNT 5.8 X10'3 (4.5-11.0)
[2020-04-15 03:29] LABS: ALANINE AMINOTRANSFERASE 26 U/L (12-78); ALBUMIN 2.3 G/DL (3.4-5.0); ALBUMIN/GLOBULIN RATIO 0.7 (1.1-1.5); ALKALINE PHOSPHATASE 111 IU/L (46-116); ANION GAP 4 (8-16); ASPARTATE AMINO TRANSFERASE 36 U/L (10-37); BILIRUBIN,TOTAL 0.8 MG/DL (0.1-1.0); BLOOD UREA NITROGEN 92 MG/DL (7-18); BUN/CREATININE RATIO 51.4 (5.4-32.0); CALCIUM 8.2 MG/DL (8.5-10.1); CHLORIDE 103 MMOL/L (99-107); CREATININE 1.79 MG/DL (0.60-1.10); GLUCOSE 135 MG/DL (70-104); MAGNESIUM 2.7 MG/DL (1.5-2.4); PHOSPHORUS 4.4 MG/DL (2.3-4.5); SODIUM 137 MMOL/L (135-145); TOTAL PROTEIN 5.6 G/DL (6.4-8.2); eGFR 36 ML/MIN
[2020-04-15] MEDS: DOBUTamine-DoBUTrex 500mg/D5W 250 ML IV SCH ×2 (04:58→17:20)
[2020-04-15] MEDS: normal saline 1000ml 1,000 ML IV SCH ×2 (04:58→21:03)
[2020-04-15] MEDS: docusate sodium 100mg/10ml UD cup NG SCH ×2 (07:47→21:04)
[2020-04-15] MEDS: aspirin 81mg tab.chew NG SCH (07:48)
[2020-04-15] MEDS: apixaban 5mg tablet NG SCH ×2 (07:48→21:05)
[2020-04-15] MEDS: MULTIVIT-MIN/FERROUS GLUCONATE 9 MG/15 ML LIQUID NG SCH (07:48)
[2020-04-15] MEDS: vitamin D (cholecalciferol) 1,000 unit tablet NG SCH (07:48)
[2020-04-15] MEDS: zinc oxide ointment 30gm tube TP SCH ×2 (08:00→19:23)
[2020-04-15] MEDS: amiodarone/D5 360MG/200ML BAG 200 ML IV SCH ×4 (08:03→21:03)
[2020-04-15 11:36] LABS: ABG HCO3 25.7 mmol/L (22.0-26.0); ABG OXYGEN SATURATION 97.2 % (95-98); ABG PCO2 (T) 51.7 mmHg (35.0-45.0); ABG PH (T) 7.315 (7.350-7.450); ABG PO2 (T) 101.9 mmHg (83-108); ALLEN'S TEST POSITIVE; FCOHb 0.1 % (0.5-1.5); FMetHb 0.3 % (0.3-1.12); FO2Hb 96.8 % (94-100); RESPIRATORY RATE 18 b/min; TOTAL HEMOGLOBIN 12.5 G/dl (14.0-17.9)
[2020-04-15] MEDS: CefTRIAXone/D5W-Rocephin 1gm 50 ML IV SCH (17:23)
--- NOTE | 2020-04-15 17:57 | NUR ---
patient blood pressure 78/[address] Mesa at bedside, new order for Normal Saline bolus 1000ml. Will continue to monitor.
[2020-04-15] MEDS: finasteride 5mg tablet PO SCH (19:23)
[2020-04-15] MEDS: atorvastatin 20mg tablet NG SCH (21:05)
[2020-04-15] MEDS: sennosides/docusate sodium tablet NG SCH (21:05)
[2020-04-16] VITALS (24 sets, daily range): BP systolic 85–121; BP diastolic 50–66
[2020-04-16] MEDS: NORepinephrine 8mg/ 250ml NS 250 ML IV SCH ×4 (02:12→19:57)
[2020-04-16 02:56] LABS: BASOPHILS % (AUTO) 0.4 % (0-1); EOSINOPHILS % (AUTO) 0.6 % (0-6); HEMATOCRIT 35.1 % (42.0-52.0); HEMOGLOBIN 11.1 g/dl (14.0-17.9); LYMPHOCYTES # (AUTO) 0.7 X10'3 (1.1-4.8); MEAN CORPUSCULAR HEMOGLOBIN 31.3 PG (27.0-31.0); MEAN CORPUSCULAR HGB CONC 31.7 g/dL (33.0-36.5); MEAN CORPUSCULAR VOLUME 98.7 FL (78-98); MEAN PLATELET VOLUME 9.1 FL (7.4-10.4); MONOCYTES # (AUTO) 0.8 X10'3 (0-0.9); MONOCYTES % (AUTO) 15.3 % (2-12); NEUTROPHILS # (AUTO) 3.9 X10'3 (1.8-7.7); NEUTROPHILS % (AUTO) 70.7 % (42-75); PLATELET COUNT 138 X10'3 (140-440); RED BLOOD COUNT 3.55 X10'6 (4.70-6.10); RED CELL DISTRIBUTION WIDTH 19.4 % (11.5-14.5); WHITE BLOOD COUNT 5.5 X10'3 (4.5-11.0)
[2020-04-16 03:27] LABS: ALANINE AMINOTRANSFERASE 31 U/L (12-78); ALBUMIN 2.3 G/DL (3.4-5.0); ALBUMIN/GLOBULIN RATIO 0.7 (1.1-1.5); ALKALINE PHOSPHATASE 114 IU/L (46-116); ANION GAP 6 (8-16); ASPARTATE AMINO TRANSFERASE 39 U/L (10-37); BILIRUBIN,TOTAL 0.6 MG/DL (0.1-1.0); BLOOD UREA NITROGEN 99 MG/DL (7-18); BUN/CREATININE RATIO 57.9 (5.4-32.0); CALCIUM 7.9 MG/DL (8.5-10.1); CHLORIDE 105 MMOL/L (99-107); CREATININE 1.71 MG/DL (0.60-1.10); GLUCOSE 118 MG/DL (70-104); MAGNESIUM 2.4 MG/DL (1.5-2.4); PHOSPHORUS 4.5 MG/DL (2.3-4.5); POTASSIUM 4.5 MMOL/L (3.5-5.1); PREALBUMIN 11.7 MG/DL (19-36); SODIUM 138 MMOL/L (135-145); TOTAL CARBON DIOXIDE 27.2 MMOL/L (24-32); TOTAL PROTEIN 5.6 G/DL (6.4-8.2); eGFR 38 ML/MIN
[2020-04-16] MEDS: normal saline 1000ml 1,000 ML IV SCH (05:26)
--- NOTE | 2020-04-16 06:00 | NUR ---
Patient in room ICU 2044. I have received report from SHALINI Beasley and had the opportunity to ask questions and assume patient care.
[2020-04-16] MEDS: amiodarone/D5 360MG/200ML BAG 200 ML IV SCH ×3 (07:07→22:34)
[2020-04-16] MEDS: CefTRIAXone/D5W-Rocephin 1gm 50 ML IV SCH (07:48)
[2020-04-16] MEDS: aspirin 81mg tab.chew NG SCH (07:49)
[2020-04-16] MEDS: MULTIVIT-MIN/FERROUS GLUCONATE 9 MG/15 ML LIQUID NG SCH (07:49)
[2020-04-16] MEDS: vitamin D (cholecalciferol) 1,000 unit tablet NG SCH (07:49)
[2020-04-16] MEDS: docusate sodium 100mg/10ml UD cup NG SCH ×2 (07:49→19:54)
[2020-04-16] MEDS: apixaban 5mg tablet NG SCH ×2 (07:49→18:15)
[2020-04-16] MEDS: zinc oxide ointment 30gm tube TP SCH ×2 (08:00→18:16)
[2020-04-16] MEDS: DOBUTamine-DoBUTrex 500mg/D5W 250 ML IV SCH ×2 (08:43→22:34)
[2020-04-16] MEDS: furosemide 20 MG/2 ML vial IV SCH ×3 (10:16→19:54)
--- NOTE | 2020-04-16 18:06 | NUR ---
Problems reprioritized. Patient report given, questions answered & plan of care reviewed with SHALINI Beasley.
[2020-04-16] MEDS: finasteride 5mg tablet PO SCH (18:16)
[2020-04-16] MEDS: atorvastatin 20mg tablet NG SCH (19:55)
[2020-04-16] MEDS: sennosides/docusate sodium tablet NG SCH (19:55)
[2020-04-16] MEDS: lactobacillus rhamnosus 10,000 MMU CELLS/CAPSULE PO SCH (19:55)
[2020-04-16] MEDS: acetaminophen 325mg/10.15ml oral unit dose solution NG PRN (19:56)
[2020-04-17] VITALS (24 sets, daily range): BP systolic 85–128; BP diastolic 44–71
[2020-04-17] MEDS: furosemide 20 MG/2 ML vial IV SCH ×4 (02:06→20:22)
[2020-04-17 02:21] LABS: BASOPHILS % (AUTO) 0.6 % (0-1); EOSINOPHILS # (AUTO) 0.1 X10'3 (0-0.9); EOSINOPHILS % (AUTO) 1.1 % (0-6); HEMATOCRIT 33.9 % (42.0-52.0); HEMOGLOBIN 10.7 g/dl (14.0-17.9); LYMPHOCYTES # (AUTO) 0.6 X10'3 (1.1-4.8); LYMPHOCYTES % (AUTO) 10.2 % (21-51); MEAN CORPUSCULAR HEMOGLOBIN 31.3 PG (27.0-31.0); MEAN CORPUSCULAR HGB CONC 31.6 g/dL (33.0-36.5); MEAN CORPUSCULAR VOLUME 99.3 FL (78-98); MEAN PLATELET VOLUME 9.2 FL (7.4-10.4); MONOCYTES # (AUTO) 0.7 X10'3 (0-0.9); MONOCYTES % (AUTO) 12.8 % (2-12); NEUTROPHILS # (AUTO) 4.3 X10'3 (1.8-7.7); NEUTROPHILS % (AUTO) 75.3 % (42-75); PLATELET COUNT 129 X10'3 (140-440); RED BLOOD COUNT 3.41 X10'6 (4.70-6.10); RED CELL DISTRIBUTION WIDTH 19.5 % (11.5-14.5); WHITE BLOOD COUNT 5.7 X10'3 (4.5-11.0)
[2020-04-17 02:35] LABS: ALANINE AMINOTRANSFERASE 28 U/L (12-78); ALBUMIN 2.1 G/DL (3.4-5.0); ALBUMIN/GLOBULIN RATIO 0.6 (1.1-1.5); ALKALINE PHOSPHATASE 114 IU/L (46-116); ANION GAP 9 (8-16); ASPARTATE AMINO TRANSFERASE 36 U/L (10-37); BILIRUBIN,TOTAL 0.6 MG/DL (0.1-1.0); BLOOD UREA NITROGEN 100 MG/DL (7-18); BUN/CREATININE RATIO 65.8 (5.4-32.0); CALCIUM 8.3 MG/DL (8.5-10.1); CHLORIDE 107 MMOL/L (99-107); CREATININE 1.52 MG/DL (0.60-1.10); GLUCOSE 117 MG/DL (70-104); MAGNESIUM 2.5 MG/DL (1.5-2.4); PHOSPHORUS 4.2 MG/DL (2.3-4.5); POTASSIUM 4.1 MMOL/L (3.5-5.1); SODIUM 144 MMOL/L (135-145); TOTAL CARBON DIOXIDE 28.2 MMOL/L (24-32); TOTAL PROTEIN 5.4 G/DL (6.4-8.2); eGFR 43 ML/MIN
[2020-04-17] MEDS: amiodarone/D5 360MG/200ML BAG 200 ML IV SCH ×5 (04:31→21:17)
[2020-04-17] MEDS: NORepinephrine 8mg/ 250ml NS 250 ML IV SCH (04:31)
--- NOTE | 2020-04-17 06:30 | NUR ---
Patient in room ICU 2044. I have received report from SHALINI Beasley and had the opportunity to ask questions and assume patient care.
[2020-04-17] MEDS: zinc oxide ointment 30gm tube TP SCH ×2 (08:00→20:43)
[2020-04-17] MEDS: apixaban 5mg tablet NG SCH ×2 (08:00→20:22)
[2020-04-17] MEDS: docusate sodium 100mg/10ml UD cup NG SCH ×2 (08:27→20:22)
[2020-04-17] MEDS: MULTIVIT-MIN/FERROUS GLUCONATE 9 MG/15 ML LIQUID NG SCH (08:27)
[2020-04-17] MEDS: lactobacillus rhamnosus 10,000 MMU CELLS/CAPSULE PO SCH ×2 (08:27→20:22)
[2020-04-17] MEDS: CefTRIAXone/D5W-Rocephin 1gm 50 ML IV SCH (08:27)
[2020-04-17] MEDS: aspirin 81mg tab.chew NG SCH (08:27)
[2020-04-17] MEDS: vitamin D (cholecalciferol) 1,000 unit tablet NG SCH (08:28)
--- NOTE | 2020-04-17 09:19 | NUR ---
Dr. Yanes rounding on pt. Ordered Solumedrol 60mg to be given q6h. Minimize pts IVF intake. PT to work with pt.
[2020-04-17] MEDS: methylPREDNISolone sod succ 125mg/2ml vial IV SCH ×3 (09:39→20:21)
[2020-04-17] MEDS: DOBUTamine-DoBUTrex 500mg/D5W 250 ML IV SCH ×2 (09:40→22:07)
--- NOTE | 2020-04-17 15:53 | NUR ---
reassessment: Pt intubated, sedated, on pressors, MAP 85. At goal rate with tube feeding using vital high protein at 80 ml/hr. Hypoactive bowel sounds, large abdomen, last BM CARDIOLOGY MANAGER no BM at least 5 days. For bowel care pt has colace BID, HS senna, miralax prn (not yet given). Recommend to continue bowel care. Generalized 3+ edema, BUE 4+ severe pitting edema, and BLE 2+ mild edema, receiving lasix. Recommendations: 1) Continuous Vital High Protein with goal rate of 80 mL/hr to provide: 1920 mL total volume/day, 1920 kcal, 168 g protein, and 1605 mL water 2) Additional water flush per MD given hx CHF and CKD III, serum Na on the low end of WNL 2) Prealbumin q Thursday/ 3) Daily weights 4) Monitor electrolytes and adjust EN recs as appropriate 5) Routine bowel care Addendum: 04/17/20 at [address] Amended: Links added.
--- NOTE | 2020-04-17 16:01 | NUR ---
reassessment: Correction on previous note, pt on not intubated he is on bipap, confirmed with RN. S/p thoracentesis with 1100 ml out. TRUCK CRANE OPERATOR HELPER recommends NPO with reassess. At goal rate with tube feeding using vital high protein at 80 ml/hr. Hypoactive bowel sounds, large abdomen, last BM FIELD SALES MANAGER no BM at least 5 days. For bowel care pt has colace BID, HS senna, miralax prn (not yet given). Recommend to continue bowel care. Generalized 3+ edema, BUE 4+ severe pitting edema, and BLE 2+ mild edema, receiving lasix. Recommendations: 1) Continuous Vital High Protein with goal rate of 80 mL/hr to provide: 1920 mL total volume/day, 1920 kcal, 168 g protein, and 1605 mL water 2) Additional water flush per MD given hx CHF and CKD III, serum Na on the low end of WNL 2) Prealbumin q Thursday/ 3) Daily weights 4) Monitor electrolytes and adjust EN recs as appropriate 5) Routine bowel care Addendum: 04/17/20 at [address] Amended: Links added.
--- NOTE | 2020-04-17 19:00 | NUR ---
PER REPORT - DAYS RN REPORTED PATIENT TOLD PHYSICAL THERAPY - "HE DID NOT WANT TO DO THIS ANYMORE". UPON ENTERING ROOM AND BEGINNING ASSESSMENT - PATIENT HAS BIPAP ON, TRACKS ME AROUND THE ROOM, TRIES TO ANSWER BUT IT TAKES MUCH EFFORT AGAINST THE BIPAP. NODS APPROPRIATELY. DENIES PAIN, RESP DISTRESS, DISCOMFORT AND N/V. PATIENT THEN SAYS TO ME CLEARLY - "I DO NOT WANT TO DO THIS ANYMORE". WHEN ASKED FOR CLARIFICATION - I ASKED ABOUT THE BIPAP AND IV MEDICINES. EACH BENEFITS EXPLAINED. PATIENT IS 100 % ALERT AND ORIENTED. PATIENT STILL SAYS THE SAME THING - I DO NOT WANT TO DO THIS ANYMORE. PATIENT'S HAPPENED TO BE CALLING THIS WAS OCCURRING SO I UPDATED HER (HALEY) AND ASKED IF SHE KNEW THIS. SHE SAID SHE DID NOT. BECAUSE PATIENT WAS AT [facility] FOR LEFT HIP THEN TX TO [facility] 04/13/2020 - FAMILY / HAVE NOT SEEN PATIENT FOR 9 WEEKS ACCEPT FOR 2 TIMES THROUGH A WINDOW. HALEY IS SUPPORTED BY HER GREAT NIECE - ADELINA, AND HER NEPHEW - DANIEL. AFTER SPEAKING WITH METER READER - I RECEIVED APPROVAL FOR FAMILY TO COME AND DISCUSS THE PATIENTS WANTS AND NEEDS IN PERSON WHILE PATIENT IS COHERENT TO BE SURE WE ARE FOLLOWING PATIENTS REQUESTS. THEY ARE ON THEIR WAY IN...
[2020-04-17] MEDS: sennosides/docusate sodium tablet NG SCH (20:22)
[2020-04-17] MEDS: atorvastatin 20mg tablet NG SCH (20:22)
--- NOTE | 2020-04-17 20:30 | NUR ---
BIPAP REMOVED FOR MOUTH CARE. SINCE PATIENT WAS DOING WELL WITH NC AND NO DISTRESS I LEFT IT. WILL CONTINUE TO MONITOR. TITRATING LEVOPHED PER ORDER. FAMILY IS NOT HERE YET
[2020-04-17] MEDS: finasteride 5mg tablet PO SCH (21:00)
--- NOTE | 2020-04-17 22:30 | NUR ---
PATIENTS - HALEY, NEPHEW - DANIEL AND GREAT NIECE - ADELINA ARRIVED NEAR 2100 TO DISCUSS PATIENTS CURRENT DESIRES FAR TREATMENT. PATIENTS DEMEANOR INSTANTLY CHANGED AND WAS DEFINITELY MORE ENERGETIC THAN PREVIOUS. AFTER DISCUSSING WHAT PATIENT TOLD ME AND THE PHYSICAL THERAPIST, WE CLARIFIED THAT PATIENT "THOUGHT HIS FAMILY THOUGHT HE WAS AND THAT IS WHY HE WANTED TO ". AT THE END OF THE VISIT, PATIENT MADE CLEAR THAT WHAT IS BEING DONE IN TERMS OF SUPPORTING BLOOD PRESSURE AND HEART ACTIVITY WELL PULMONARY IS ALL "OK WITH HIM". HE IS VERY RELIEVED TO SEE HIS FAMILY AND KNOW THAT THEY ARE AWARE HE IS HERE. AFTER FAMILY LEFT, FULL BED AND BATH AND DRESSINGS CHANGED. TOLERATING NC. AFTERWARDS PATIENT STATES "THAT HE FEELS LIKE A WHOLE NEW PERSON" . A VERY DIFFERENT PATIENT THAN THE BEGINNING OF THE SHIFT IN A POSITIVE DIRECTION. TOLERATING TITRATION OF LEVOPHED DOWN.
[2020-04-18] VITALS (25 sets, daily range): BP systolic 85–133; BP diastolic 43–68
[2020-04-18] MEDS: furosemide 20 MG/2 ML vial IV SCH ×4 (02:09→19:48)
[2020-04-18] MEDS: methylPREDNISolone sod succ 125mg/2ml vial IV SCH ×2 (02:09→09:08)
[2020-04-18 02:42] LABS: BASOPHILS % (AUTO) 0.1 % (0-1); EOSINOPHILS % (AUTO) 0 % (0-6); HEMATOCRIT 32.7 % (42.0-52.0); HEMOGLOBIN 10.3 g/dl (14.0-17.9); LYMPHOCYTES # (AUTO) 0.3 X10'3 (1.1-4.8); LYMPHOCYTES % (AUTO) 4.3 % (21-51); MEAN CORPUSCULAR HEMOGLOBIN 31.1 PG (27.0-31.0); MEAN CORPUSCULAR HGB CONC 31.6 g/dL (33.0-36.5); MEAN CORPUSCULAR VOLUME 98.6 FL (78-98); MEAN PLATELET VOLUME 9.8 FL (7.4-10.4); MONOCYTES # (AUTO) 0.1 X10'3 (0-0.9); MONOCYTES % (AUTO) 1.3 % (2-12); NEUTROPHILS # (AUTO) 6.7 X10'3 (1.8-7.7); NEUTROPHILS % (AUTO) 94.3 % (42-75); PLATELET COUNT 117 X10'3 (140-440); RED BLOOD COUNT 3.32 X10'6 (4.70-6.10); RED CELL DISTRIBUTION WIDTH 19.4 % (11.5-14.5); WHITE BLOOD COUNT 7.1 X10'3 (4.5-11.0)
[2020-04-18 02:53] LABS: PARTIAL THROMBOPLASTIN TIME 37 SECONDS (22-32)
[2020-04-18 03:01] LABS: ALANINE AMINOTRANSFERASE 33 U/L (12-78); ALBUMIN 2.1 G/DL (3.4-5.0); ALBUMIN/GLOBULIN RATIO 0.6 (1.1-1.5); ALKALINE PHOSPHATASE 118 IU/L (46-116); ANION GAP 7 (8-16); ASPARTATE AMINO TRANSFERASE 35 U/L (10-37); BILIRUBIN,TOTAL 0.5 MG/DL (0.1-1.0); BLOOD UREA NITROGEN 98 MG/DL (7-18); BUN/CREATININE RATIO 65.8 (5.4-32.0); CALCIUM 8.1 MG/DL (8.5-10.1); CHLORIDE 108 MMOL/L (99-107); CREATININE 1.49 MG/DL (0.60-1.10); GLUCOSE 154 MG/DL (70-104); MAGNESIUM 2.1 MG/DL (1.5-2.4); PHOSPHORUS 3.6 MG/DL (2.3-4.5); POTASSIUM 3.8 MMOL/L (3.5-5.1); SODIUM 145 MMOL/L (135-145); TOTAL PROTEIN 5.5 G/DL (6.4-8.2); eGFR 45 ML/MIN
[2020-04-18] MEDS: amiodarone/D5 360MG/200ML BAG 200 ML IV SCH ×2 (03:21→05:56)
[2020-04-18] MEDS: zinc oxide ointment 30gm tube TP SCH ×2 (08:00→20:00)
[2020-04-18] MEDS: CefTRIAXone/D5W-Rocephin 1gm 50 ML IV SCH (09:06)
[2020-04-18] MEDS: docusate sodium 100mg/10ml UD cup NG SCH ×2 (09:06→19:47)
[2020-04-18] MEDS: aspirin 81mg tab.chew NG SCH (09:07)
[2020-04-18] MEDS: MULTIVIT-MIN/FERROUS GLUCONATE 9 MG/15 ML LIQUID NG SCH (09:07)
[2020-04-18] MEDS: lactobacillus rhamnosus 10,000 MMU CELLS/CAPSULE PO SCH ×2 (09:07→19:47)
[2020-04-18] MEDS: vitamin D (cholecalciferol) 1,000 unit tablet NG SCH (09:08)
[2020-04-18] MEDS: apixaban 5mg tablet NG SCH ×2 (09:11→19:47)
[2020-04-18] MEDS ORDERED: vancomycin/NS 1 GM ADD-VANTAGE 250 ML IV ONE (09:25)
[2020-04-18] MEDS: VANCOmycin 1250MG/NS 250ml Bag 250 ML IV SCH (10:15)
[2020-04-18] MEDS: DOBUTamine-DoBUTrex 500mg/D5W 250 ML IV SCH ×2 (12:49→16:28)
[2020-04-18] MEDS: NORepinephrine 8mg/ 250ml NS 250 ML IV SCH (16:17)
--- NOTE | 2020-04-18 17:31 | NUR ---
reassessment 04/18: Patient had repeat BSS this morning by TOBACCO SIZER, TOBACCO SIZER reports pt with difficulty chewing and recommends pureed foods and thin liquids. Recommend to continue TF until PO intake greater than 65%, discussed with bedside nurse. He s/p thoracentesis 04/17 with 1100 ml out. At goal rate with tube feeding using vital high protein at 80 ml/hr. Hypoactive bowel sounds, large abdomen, last BM CONSUMER ADVOCATE no BM at least 5 days. For bowel care pt has colace BID, HS senna, miralax prn (not yet given). Recommend to continue bowel care. Generalized 3+ edema, BUE 4+ severe pitting edema, and BLE 2+ mild edema, receiving lasix. Recommendations: 1) Continuous Vital High Protein with goal rate of 80 mL/hr to provide: 1920 mL total volume/day, 1920 kcal, 168 g protein, and 1605 mL water 2) Additional water flush per MD given hx CHF and CKD III, serum Na on the low end of WNL 2) Prealbumin q Thursday/ 3) Daily weights 4) Monitor electrolytes and adjust EN recs as appropriate 5) Routine bowel care 6) Pureed diet with thin liquid per TOBACCO SIZER recommendations Addendum: 04/18/20 at [address] Amended: Links added.
--- NOTE | 2020-04-18 18:16 | NUR ---
Problems reprioritized. Patient report given, questions answered & plan of care reviewed with Omer RN.
--- NOTE | 2020-04-18 18:50 | NUR ---
Patient in room ICU 2044. I have received report from Ryan LOYA and had the opportunity to ask questions and assume patient care.
[2020-04-18] MEDS: amiodarone 200mg tablet PO SCH (19:47)
[2020-04-18] MEDS: methylPREDNISolone sod succ/PF 40mg inj. IV SCH (19:48)
[2020-04-18] MEDS ORDERED: vancomycin/NS 1 GM ADD-VANTAGE 250 ML IV SCH (20:00)
[2020-04-18] MEDS: atorvastatin 20mg tablet NG SCH (20:48)
[2020-04-18] MEDS: sennosides/docusate sodium tablet NG SCH (20:48)
[2020-04-18] MEDS: finasteride 5mg tablet PO SCH (20:49)
[2020-04-19] VITALS (23 sets, daily range): BP systolic 98–141; BP diastolic 47–81
[2020-04-19] MEDS: furosemide 20 MG/2 ML vial IV SCH (02:05)
[2020-04-19 04:34] LABS: EOSINOPHILS % (AUTO) 0 % (0-6); LYMPHOCYTES # (AUTO) 0.4 X10'3 (1.1-4.8)
[2020-04-19 04:35] LABS: BASOPHILS % (AUTO) 0.2 % (0-1); HEMATOCRIT 32.4 % (42.0-52.0); HEMOGLOBIN 10.3 g/dl (14.0-17.9); MEAN CORPUSCULAR HGB CONC 31.6 g/dL (33.0-36.5); MEAN CORPUSCULAR VOLUME 98.1 FL (78-98); MEAN PLATELET VOLUME 9.6 FL (7.4-10.4); MONOCYTES # (AUTO) 0.8 X10'3 (0-0.9); MONOCYTES % (AUTO) 6.5 % (2-12); NEUTROPHILS # (AUTO) 11.4 X10'3 (1.8-7.7); NEUTROPHILS % (AUTO) 90.3 % (42-75); PLATELET COUNT 126 X10'3 (140-440); RED CELL DISTRIBUTION WIDTH 19.4 % (11.5-14.5); WHITE BLOOD COUNT 12.6 X10'3 (4.5-11.0)
[2020-04-19 04:52] LABS: ALANINE AMINOTRANSFERASE 39 U/L (12-78); ALBUMIN 2.3 G/DL (3.4-5.0); ALBUMIN/GLOBULIN RATIO 0.7 (1.1-1.5); ALKALINE PHOSPHATASE 117 IU/L (46-116); ANION GAP 5 (8-16); ASPARTATE AMINO TRANSFERASE 34 U/L (10-37); BILIRUBIN,TOTAL 0.6 MG/DL (0.1-1.0); BLOOD UREA NITROGEN 103 MG/DL (7-18); BUN/CREATININE RATIO 69.6 (5.4-32.0); CALCIUM 8.4 MG/DL (8.5-10.1); CHLORIDE 108 MMOL/L (99-107); CREATININE 1.48 MG/DL (0.60-1.10); GLUCOSE 132 MG/DL (70-104); MAGNESIUM 2.2 MG/DL (1.5-2.4); PHOSPHORUS 3.5 MG/DL (2.3-4.5); POTASSIUM 4.2 MMOL/L (3.5-5.1); PREALBUMIN 14.9 MG/DL (19-36); SODIUM 145 MMOL/L (135-145); TOTAL PROTEIN 5.8 G/DL (6.4-8.2); eGFR 45 ML/MIN
--- NOTE | 2020-04-19 06:29 | NUR ---
Problems reprioritized. Patient report given, questions answered & plan of care reviewed with Ponce LOYA.
[2020-04-19 07:19] LABS: ANISOCYTOSIS 2+; LARGE PLATELETS FEW; PLATELET ESTIMATE DECREASED; POLYCHROMASIA FEW; TOTAL CELLS COUNTED 100
[2020-04-19] MEDS: zinc oxide ointment 30gm tube TP SCH ×2 (08:00→19:16)
[2020-04-19] MEDS ORDERED: NORMAL SALINE IV SCH (08:55)
[2020-04-19] MEDS ORDERED: FUROSEMIDE IV SCH (08:55)
[2020-04-19] MEDS: methylPREDNISolone sod succ/PF 40mg inj. IV SCH ×2 (09:02→20:43)
[2020-04-19] MEDS: lactobacillus rhamnosus 10,000 MMU CELLS/CAPSULE PO SCH ×2 (09:02→20:43)
[2020-04-19] MEDS: aspirin 81mg tab.chew NG SCH (09:03)
[2020-04-19] MEDS: apixaban 5mg tablet NG SCH ×2 (09:03→20:43)
[2020-04-19] MEDS: amiodarone 200mg tablet PO SCH ×2 (09:03→20:43)
[2020-04-19] MEDS: vitamin D (cholecalciferol) 1,000 unit tablet NG SCH (09:03)
[2020-04-19] MEDS: MULTIVIT-MIN/FERROUS GLUCONATE 9 MG/15 ML LIQUID NG SCH (09:04)
[2020-04-19] MEDS: docusate sodium 100mg/10ml UD cup NG SCH ×2 (09:04→20:43)
[2020-04-19] MEDS: VANCOmycin 1250MG/NS 250ml Bag 250 ML IV SCH (10:41)
[2020-04-19] MEDS: DOBUTamine-DoBUTrex 500mg/D5W 250 ML IV SCH (10:41)
[2020-04-19] MEDS: furosemide inj 100 ML IV SCH (10:42)
[2020-04-19 19:16] LABS: ALBUMIN 2.5 G/DL (3.4-5.0); ANION GAP 5 (8-16); BLOOD UREA NITROGEN 111 MG/DL (7-18); BUN/CREATININE RATIO 78.7 (5.4-32.0); CALCIUM 8.7 MG/DL (8.5-10.1); CHLORIDE 106 MMOL/L (99-107); CREATININE 1.41 MG/DL (0.60-1.10); GLUCOSE 153 MG/DL (70-104); MAGNESIUM 2.2 MG/DL (1.5-2.4); PHOSPHORUS 4.1 MG/DL (2.3-4.5); POTASSIUM 4.4 MMOL/L (3.5-5.1); SODIUM 144 MMOL/L (135-145); TOTAL CARBON DIOXIDE 32.9 MMOL/L (24-32); eGFR 47 ML/MIN
[2020-04-19] MEDS: finasteride 5mg tablet PO SCH (20:43)
[2020-04-19] MEDS: atorvastatin 20mg tablet NG SCH (20:43)
[2020-04-19] MEDS: sennosides/docusate sodium tablet NG SCH (20:43)
[2020-04-20] VITALS (24 sets, daily range): BP systolic 82–145; BP diastolic 54–72
[2020-04-20 00:41] LABS: HEMOGLOBIN 10.4 g/dl (14.0-17.9); MEAN PLATELET VOLUME 9.3 FL (7.4-10.4)
[2020-04-20 00:43] LABS: BASOPHILS % (AUTO) 0.4 % (0-1); EOSINOPHILS % (AUTO) 0 % (0-6); HEMATOCRIT 32.6 % (42.0-52.0); LYMPHOCYTES # (AUTO) 0.3 X10'3 (1.1-4.8); LYMPHOCYTES % (AUTO) 2.8 % (21-51); MEAN CORPUSCULAR HEMOGLOBIN 31.9 PG (27.0-31.0); MEAN CORPUSCULAR VOLUME 99.8 FL (78-98); MONOCYTES # (AUTO) 0.9 X10'3 (0-0.9); MONOCYTES % (AUTO) 7.1 % (2-12); NEUTROPHILS # (AUTO) 11.2 X10'3 (1.8-7.7); NEUTROPHILS % (AUTO) 89.7 % (42-75); PLATELET COUNT 135 X10'3 (140-440); RED BLOOD COUNT 3.27 X10'6 (4.70-6.10); RED CELL DISTRIBUTION WIDTH 19.6 % (11.5-14.5); WHITE BLOOD COUNT 12.4 X10'3 (4.5-11.0)
[2020-04-20 00:51] LABS: ALANINE AMINOTRANSFERASE 41 U/L (12-78); ALBUMIN 2.4 G/DL (3.4-5.0); ALBUMIN/GLOBULIN RATIO 0.6 (1.1-1.5); ALKALINE PHOSPHATASE 122 IU/L (46-116); ANION GAP 2 (8-16); ASPARTATE AMINO TRANSFERASE 42 U/L (10-37); BILIRUBIN,TOTAL 0.6 MG/DL (0.1-1.0); BLOOD UREA NITROGEN 110 MG/DL (7-18); BUN/CREATININE RATIO 75.9 (5.4-32.0); CALCIUM 8.5 MG/DL (8.5-10.1); CHLORIDE 106 MMOL/L (99-107); CREATININE 1.45 MG/DL (0.60-1.10); GLUCOSE 149 MG/DL (70-104); MAGNESIUM 2.1 MG/DL (1.5-2.4); PHOSPHORUS 3.6 MG/DL (2.3-4.5); POTASSIUM 4.2 MMOL/L (3.5-5.1); SODIUM 144 MMOL/L (135-145); TOTAL CARBON DIOXIDE 35.7 MMOL/L (24-32); TOTAL PROTEIN 6.5 G/DL (6.4-8.2); eGFR 46 ML/MIN
[2020-04-20 01:04] LABS: ANISOCYTOSIS 2+; PLATELET ESTIMATE DECREASED; POIKILOCYTOSIS 1+
[2020-04-20 01:05] LABS: TEAR DROP CELLS FEW
[2020-04-20] MEDS: DOBUTamine-DoBUTrex 500mg/D5W 250 ML IV SCH ×2 (03:05→17:07)
[2020-04-20 06:20] LABS: ALBUMIN 2.4 G/DL (3.4-5.0); ANION GAP 5 (8-16); BLOOD UREA NITROGEN 108 MG/DL (7-18); BUN/CREATININE RATIO 78.3 (5.4-32.0); CALCIUM 8.5 MG/DL (8.5-10.1); CHLORIDE 106 MMOL/L (99-107); CREATININE 1.38 MG/DL (0.60-1.10); GLUCOSE 154 MG/DL (70-104); MAGNESIUM 2.1 MG/DL (1.5-2.4); PHOSPHORUS 3.9 MG/DL (2.3-4.5); POTASSIUM 3.9 MMOL/L (3.5-5.1); SODIUM 146 MMOL/L (135-145); TOTAL CARBON DIOXIDE 35.5 MMOL/L (24-32); eGFR 49 ML/MIN
--- NOTE | 2020-04-20 06:20 | NUR ---
Problems reprioritized. Patient report given, questions answered & plan of care reviewed with Ryan LOYA.
[2020-04-20] MEDS: aspirin 81mg tab.chew NG SCH (08:39)
[2020-04-20] MEDS: apixaban 5mg tablet NG SCH ×2 (08:39→21:04)
[2020-04-20] MEDS: amiodarone 200mg tablet PO SCH ×2 (08:39→21:05)
[2020-04-20] MEDS: methylPREDNISolone sod succ/PF 40mg inj. IV SCH ×2 (08:39→21:03)
[2020-04-20] MEDS: vitamin D (cholecalciferol) 1,000 unit tablet NG SCH (08:39)
[2020-04-20] MEDS: docusate sodium 100mg/10ml UD cup NG SCH ×2 (08:39→20:00)
[2020-04-20] MEDS: MULTIVIT-MIN/FERROUS GLUCONATE 9 MG/15 ML LIQUID NG SCH (08:39)
[2020-04-20] MEDS: zinc oxide ointment 30gm tube TP SCH ×2 (08:40→20:00)
[2020-04-20] MEDS: lactobacillus rhamnosus 10,000 MMU CELLS/CAPSULE PO SCH ×2 (08:41→21:05)
[2020-04-20] MEDS: VANCOmycin 1250MG/NS 250ml Bag 250 ML IV SCH (09:50)
--- NOTE | 2020-04-20 12:54 | NUR ---
reassessment 04/20: Eating 25-49%. BSS done 04/17 HYDROELECTRIC PLANT ELECTRICAL ENGINEER reports pt with difficulty chewing and recommends pureed foods and thin liquids. Recommend to continue TF until PO intake greater than 65%, discussed with bedside nurse. He s/p thoracentesis 04/17 with 1100 ml out. At goal rate with tube feeding using vital high protein at 80 ml/hr. last BM 04/20. Recommendations: 1) Continuous Vital High Protein with goal rate of 80 mL/hr to provide: 1920 mL total volume/day, 1920 kcal, 168 g protein, and 1605 mL water 2) Additional water flush per MD given hx CHF and CKD III, serum Na on the low end of WNL 2) Prealbumin q Thursday/ 3) Daily weights 4) Monitor electrolytes and adjust EN recs as appropriate 5) Routine bowel care 6) Pureed diet with thin liquid per HYDROELECTRIC PLANT ELECTRICAL ENGINEER recommendations Addendum: 04/20/20 at [address] Amended: Links added.
[2020-04-20 13:06] LABS: ALBUMIN 2.3 G/DL (3.4-5.0); ANION GAP 4 (8-16); BLOOD UREA NITROGEN 107 MG/DL (7-18); BUN/CREATININE RATIO 81.1 (5.4-32.0); CALCIUM 7.7 MG/DL (8.5-10.1); CHLORIDE 108 MMOL/L (99-107); CREATININE 1.32 MG/DL (0.60-1.10); GLUCOSE 142 MG/DL (70-104); MAGNESIUM 1.9 MG/DL (1.5-2.4); PHOSPHORUS 3.7 MG/DL (2.3-4.5); POTASSIUM 3.4 MMOL/L (3.5-5.1); SODIUM 146 MMOL/L (135-145); TOTAL CARBON DIOXIDE 33.6 MMOL/L (24-32); eGFR 51 ML/MIN
[2020-04-20] MEDS: lactose-reduced food (Ensure Enlive) - 237ml bottle PO SCH (18:07)
--- NOTE | 2020-04-20 18:15 | NUR ---
Problems reprioritized. Patient report given, questions answered & plan of care reviewed with Vielka LOYA.
--- NOTE | 2020-04-20 18:18 | NUR ---
Patient in room ICU 2044. I have received report from SHALINI Davis and had the opportunity to ask questions and assume patient care.
[2020-04-20 18:21] LABS: ALBUMIN 2.5 G/DL (3.4-5.0); ANION GAP 2 (8-16); BLOOD UREA NITROGEN 112 MG/DL (7-18); BUN/CREATININE RATIO 78.9 (5.4-32.0); CALCIUM 8.2 MG/DL (8.5-10.1); CHLORIDE 105 MMOL/L (99-107); CREATININE 1.42 MG/DL (0.60-1.10); GLUCOSE 158 MG/DL (70-104); PHOSPHORUS 3.9 MG/DL (2.3-4.5); POTASSIUM 3.7 MMOL/L (3.5-5.1); SODIUM 145 MMOL/L (135-145); TOTAL CARBON DIOXIDE 37.6 MMOL/L (24-32); eGFR 47 ML/MIN
[2020-04-20] MEDS: sennosides/docusate sodium tablet NG SCH (21:00)
[2020-04-20] MEDS: atorvastatin 20mg tablet NG SCH (21:05)
[2020-04-20] MEDS: finasteride 5mg tablet PO SCH (21:09)
[2020-04-20] MEDS: furosemide inj 100 ML IV SCH (21:10)
[2020-04-21] VITALS (18 sets, daily range): BP systolic 63–115; BP diastolic 35–64
[2020-04-21 00:59] LABS: EOSINOPHILS % (AUTO) 0 % (0-6); LYMPHOCYTES # (AUTO) 0.3 X10'3 (1.1-4.8); MEAN PLATELET VOLUME 9.2 FL (7.4-10.4); MONOCYTES # (AUTO) 0.8 X10'3 (0-0.9)
[2020-04-21 01:02] LABS: HEMATOCRIT 31.9 % (42.0-52.0); LYMPHOCYTES % (AUTO) 2.1 % (21-51); MEAN CORPUSCULAR HEMOGLOBIN 31.3 PG (27.0-31.0); MEAN CORPUSCULAR HGB CONC 31.4 g/dL (33.0-36.5); MEAN CORPUSCULAR VOLUME 99.7 FL (78-98); MONOCYTES % (AUTO) 5.9 % (2-12); NEUTROPHILS % (AUTO) 91.9 % (42-75); PLATELET COUNT 145 X10'3 (140-440); RED CELL DISTRIBUTION WIDTH 19.8 % (11.5-14.5); WHITE BLOOD COUNT 12.9 X10'3 (4.5-11.0)
[2020-04-21 01:03] LABS: BASOPHILS % (AUTO) 0.1 % (0-1); NEUTROPHILS # (AUTO) 11.8 X10'3 (1.8-7.7)
[2020-04-21 01:11] LABS: ALANINE AMINOTRANSFERASE 57 U/L (12-78); ALBUMIN 2.5 G/DL (3.4-5.0); ALBUMIN/GLOBULIN RATIO 0.7 (1.1-1.5); ALKALINE PHOSPHATASE 131 IU/L (46-116); ANION GAP 4 (8-16); ASPARTATE AMINO TRANSFERASE 43 U/L (10-37); BILIRUBIN,TOTAL 0.7 MG/DL (0.1-1.0); BLOOD UREA NITROGEN 120 MG/DL (7-18); BUN/CREATININE RATIO 83.3 (5.4-32.0); CALCIUM 8.3 MG/DL (8.5-10.1); CHLORIDE 104 MMOL/L (99-107); CREATININE 1.44 MG/DL (0.60-1.10); GLUCOSE 160 MG/DL (70-104); PHOSPHORUS 3.6 MG/DL (2.3-4.5); POTASSIUM 4.1 MMOL/L (3.5-5.1); SODIUM 145 MMOL/L (135-145); TOTAL CARBON DIOXIDE 37.2 MMOL/L (24-32); TOTAL PROTEIN 5.9 G/DL (6.4-8.2); eGFR 46 ML/MIN
[2020-04-21 01:34] LABS: NUCLEATED RED BLOOD CELLS 3 /100WBC (0-0); PLATELET ESTIMATE NORMAL; TOTAL CELLS COUNTED 100
[2020-04-21 01:36] LABS: POLYCHROMASIA 1+
[2020-04-21 01:37] LABS: ANISOCYTOSIS 2+; POIKILOCYTOSIS FEW
[2020-04-21 01:38] LABS: TOXIC GRANULATION 2+
[2020-04-21 01:39] LABS: LARGE PLATELETS FEW
[2020-04-21 06:15] LABS: ALBUMIN 2.4 G/DL (3.4-5.0); ANION GAP -1 (8-16); BLOOD UREA NITROGEN 124 MG/DL (7-18); BUN/CREATININE RATIO 82.1 (5.4-32.0); CALCIUM 8.2 MG/DL (8.5-10.1); CHLORIDE 103 MMOL/L (99-107); CREATININE 1.51 MG/DL (0.60-1.10); GLUCOSE 134 MG/DL (70-104); MAGNESIUM 2.1 MG/DL (1.5-2.4); POTASSIUM 4.3 MMOL/L (3.5-5.1); SODIUM 139 MMOL/L (135-145); TOTAL CARBON DIOXIDE 36.9 MMOL/L (24-32); eGFR 44 ML/MIN
--- NOTE | 2020-04-21 06:15 | NUR ---
Problems reprioritized. Patient report given, questions answered & plan of care reviewed with SHALINI Huynh .
[2020-04-21] MEDS: docusate sodium 100mg/10ml UD cup NG SCH (08:40)
[2020-04-21] MEDS: MULTIVIT-MIN/FERROUS GLUCONATE 9 MG/15 ML LIQUID NG SCH (08:40)
[2020-04-21] MEDS: methylPREDNISolone sod succ/PF 40mg inj. IV SCH (08:42)
[2020-04-21] MEDS: amiodarone 200mg tablet PO SCH (08:42)
[2020-04-21] MEDS: aspirin 81mg tab.chew NG SCH (08:42)
[2020-04-21] MEDS: vitamin D (cholecalciferol) 1,000 unit tablet NG SCH (08:43)
[2020-04-21] MEDS: apixaban 5mg tablet NG SCH (08:43)
[2020-04-21] MEDS: lactobacillus rhamnosus 10,000 MMU CELLS/CAPSULE PO SCH (08:44)
[2020-04-21] MEDS: lactose-reduced food (Ensure Enlive) - 237ml bottle PO SCH ×2 (08:45→13:00)
[2020-04-21] MEDS: zinc oxide ointment 30gm tube TP SCH (08:46)
[2020-04-21] MEDS: DOBUTamine-DoBUTrex 500mg/D5W 250 ML IV SCH (08:47)
[2020-04-21] MEDS ORDERED: VANCOMYCIN LEVEL IV ONE (09:30)
[2020-04-21] MEDS ORDERED: vancomycin/NS 1 GM ADD-VANTAGE 250 ML X 1 DOSE IV SCH (11:00)
[2020-04-21 15:38] LABS: ALBUMIN 2.2 G/DL (3.4-5.0); ANION GAP 2 (8-16); BLOOD UREA NITROGEN 133 MG/DL (7-18); BUN/CREATININE RATIO 79.6 (5.4-32.0); CALCIUM 8.1 MG/DL (8.5-10.1); CHLORIDE 104 MMOL/L (99-107); CREATININE 1.67 MG/DL (0.60-1.10); GLUCOSE 123 MG/DL (70-104); MAGNESIUM 2.2 MG/DL (1.5-2.4); PHOSPHORUS 5.6 MG/DL (2.3-4.5); POTASSIUM 5.4 MMOL/L (3.5-5.1); SODIUM 145 MMOL/L (135-145); TOTAL CARBON DIOXIDE 38.8 MMOL/L (24-32); eGFR 39 ML/MIN
[2020-04-21] MEDS ORDERED: albumin (human) 25% 100 ML IV solution IV ONE (16:05)
--- NOTE | 2020-04-21 17:04 | NUR ---
RN IS TO DOCUMENT YES TO ALL APPLICABLE AREAS Pronouncement of : 1. Time Physician Notified: 170 2. Date of : April 21, 2020 3. Time of : 1703 4. DNR/Withdraw life support documented: yes 5. Monitor strip has been placed on chart: yes 6. Assessment process is of one-minute duration and includes following criteria: a) Patient is unresponsive to all stimuli: yes b) Pupils fixed and non-reactive:yes c) Auscultation of precordium reveals absence of heart tones:yes d) Auscultation of lungs reveals absence of breath sounds: yes e) Absence of blood pressure / all vital signs: yes f) QRS complexes are not present on monitor / EKG strip: yes g) Pacer spikes without capture: yes 4. Comments: Patient began with agonal breathing at 1630, notified Dr. Alvarez of change of condition with blood pressure decreasing with MAP below 55, oxygen demand now up with saturations of 88% on 5 L/min, having increased ectopy. Patient also had no urine output for 2 hours. Albumin given, lasix drip stopped. Patient declined rapid respiratorily and passed at 1704. Notified Anai Moran VACUUM CLEANER ASSEMBLER when she arrived to floor at 1706 that the patient passed. notified that patient was immanent at 1645 and she stated she was going into hospital.
--- NOTE | 2020-04-21 18:13 | NUR ---
[facility] contacted reference number [id number]
[2020-04-24] MEDS ORDERED: VANCOMYCIN LEVEL IV ONE (10:30)
== END 2020-04-21 17:05 | disposition expired | DRG 871 ==
LOC: ER 09:28 → ED HOLD 13:38 → ICU 2S 15:42
PROVIDERS: ADMIT Internal Medicine Critical Care Medicine; ATTEND Internal Medicine Critical Care Medicine
PROC: 5A09557 Assistance with Respiratory Ventilation, Greater than 96 Consecutive Hours, Continuous Positive Airway Pressure (ICD-10-PCS; principal; 2020-04-13)
PROC: 0T9B70Z Drainage of Bladder with Drainage Device, Via Natural or Artificial Opening (ICD-10-PCS; 2020-04-13)
PROC: 0W993ZZ Drainage of Right Pleural Cavity, Percutaneous Approach (ICD-10-PCS; 2020-04-17)
DX: A41.9 Sepsis, unspecified organism (principal); J96.01 Acute respiratory failure with hypoxia; G93.41 Metabolic encephalopathy; J96.02 Acute respiratory failure with hypercapnia; N17.9 Acute kidney failure, unspecified; I13.0 Hypertensive heart and chronic kidney disease with heart failure and stage 1 through stage 4 chronic kidney disease, or unspecified chronic kidney disease; E87.2 Acidosis; R57.9 Shock, unspecified; N39.0 Urinary tract infection, site not specified; J91.8 Pleural effusion in other conditions classified elsewhere; N18.3 Chronic kidney disease, stage 3 (moderate); E87.5 Hyperkalemia; I25.5 Ischemic cardiomyopathy; B95.7 Other staphylococcus as the cause of diseases classified elsewhere; B95.2 Enterococcus as the cause of diseases classified elsewhere; G47.33 Obstructive sleep apnea (adult) (pediatric); E78.00 Pure hypercholesterolemia, unspecified; I25.10 Atherosclerotic heart disease of native coronary artery without angina pectoris; I48.0 Paroxysmal atrial fibrillation; I50.82 Biventricular heart failure; N35.911 Unspecified urethral stricture, male, meatal; N40.0 Benign prostatic hyperplasia without lower urinary tract symptoms; R62.7 Adult failure to thrive; Z66 Do not resuscitate; Z88.5 Allergy status to narcotic agent; Z79.899 Other long term (current) drug therapy; Z79.01 Long term (current) use of anticoagulants; Z68.33 Body mass index [BMI] 33.0-33.9, adult; Q54.0 Hypospadias, balanic
CPT/HCPCS: 32555; 36415; 36600; 70450; 71045; 71046; 74018; 80053; 80069; 80202; 81001; 82570; 82800; 82803; 82948; 83605; 83735; 84100; 84134; 84145; 84300; 84439; 84443; 85018; 85025; 85610; 85730; 86885; 86900; 86901; 87040; 87077; 87081; 87088; 87186; 87207; 92508; 92616; 93005; 93308; 94660; 94760; 96365; 96375; 97110; 97116; 97161; 97162; 97164; 97530; 99291; 99292; G0378; J0696; J1250; J1940; J2543; J2920; J2930; J3370; J7030; P9047